=== PATIENT | male | born 1955 | race Caucasian/White ===

== ENCOUNTER 2016-10-01 23:35 | Emergency (ER) | payer BC ==
[~2016-10-01] VITALS: Ht 175.3 cm; Wt 91.4 kg
[~2016-10-01 23:35] MED LIST: CITA20TA9 PO; IBUP600T44 PO; LVQ750 PO; MISCCAP80 PO
[2016-10-01 23:40] VITALS: TEMP 37.2; Ht 175.3 cm; Wt 91.4 kg
[2016-10-02] MEDS ORDERED: ONDANSETRON INJ 2 MG/ML 2 ML VIAL IV STA ×2 (00:07→01:41)
[2016-10-02] MEDS ORDERED: SODIUM CHLORIDE 0.9% 1000ML 1,000 ML IV STA ×2 (00:08)
[2016-10-02 00:36] LABS: BASO % 0.2 %; BASO ABS # 0.01 K/uL (0-0.2); COMPLETE YES; HEMATOCRIT 47.8 % (42-52); LYMPH % 14.7 %; LYMPH ABS # 0.59 K/uL (1.2-3.4); MEAN CELL VOLUME 89.8 fL (80-100); MEAN CORPUSCULAR HGB CONC 34.5 g/dl (32-36); MEAN PLATELET VOLUME 9.4 fL (7.4-10.4); MONO % 11.5 %; NEUT % 73.6 %; PLATELET COUNT 164 K/uL (130-400); RED BLOOD COUNT 5.32 M/uL (4.7-6.1); WHITE BLOOD COUNT 4.01 K/uL (4.8-10.8)
[2016-10-02 00:41] VITALS: O2SAT 95
[2016-10-02 00:53] LABS: INR 1.1 (0.9-1.1); PARTIAL THROMBOPLASTIN RATIO 1.2; PROTHROMBIN TIME (PATIENT) 11.7 SECONDS (9.0-12.0)
[2016-10-02 00:57] LABS: ALT/SGPT 64 U/L (12-78); BLOOD UREA NITROGEN 18 mg/dl (7-18); BUN/CREATININE RATIO 16.5 (10-20); CALCIUM 8.8 mg/dl (8.5-10.1); CARBON DIOXIDE 22 mmol/L (21-32); CHLORIDE 102 mmol/L (98-107); GLUCOSE 118 mg/dl (70-99); POTASSIUM 3.8 mmol/L (3.5-5.1); SODIUM 135 mmol/L (136-145)
[2016-10-02 01:00] LABS: ALB/GLOB RATIO 0.9 (0.9-2); ALKALINE PHOSPHATASE 100 U/L (45-117); AST/SGOT 54 U/L (15-37)
[2016-10-02 01:22] LABS: LYME DISEASE AB IGG NEG (NEG); LYME DISEASE AB IGM NEG (NEG)
[2016-10-02] MEDS ORDERED: PARO1TAB29 PO (01:24)
--- NOTE | 2016-10-02 01:27 | EMERGENCY ROOM VISIT NOTE ---
History Report prepared by Hetal: Nish Lindsey Under the Supervision of: Dr. Candie Quinones D.O. First contact with patient: 23:48 Chief Complaint: ILLNESS Stated Complaint: CHILLS,FEVER,SWEATS,DRY HEAVES, History of Present Illness The patient is a 61 year old male who presents to the Emergency Room with complaints of intermittent vomiting that began 3 days ago. At this time, the patient began to have an abundance of symptoms that include chills, nausea, body aches, diaphoresis, headaches, and the vomiting as well. Eating makes his symptoms worse, and he cannot keep anything, food or water, in his system. Yesterday, he had a fever of 101 F. He has never had this before. He has had pneumonia and diverticulitis in the past, but states that this feels different. He had one bowel movement since Wednesday, and he states that it was diarrhea. He has a past medical history of an appendectomy and multiple hernia surgeries. He denies any specific abdominal pain, but states that his "skin is tender." He denies any history of heart problems or diabetes. He notes that he had a tick bite 8 weeks ago. He states that he removed it quickly. Source of History: patient Onset: 3 days ago Position: other (GI) Symptom Intensity: moderate Quality: other (Vomiting) Timing: intermittent Modifying Factors (Worsening): eating Associated Symptoms: + chills, + headache, + diaphoresis, + nausea, + diarrhea, No abdominal pain Note: He has body aches. Review of Systems See HPI for pertinent positives & negatives. A total of 10 systems reviewed and were otherwise negative. Past Medical & Surgical Medical Problems: (1) Diverticulitis Surgical Problems: (1) S/P appendectomy (2) S/P knee replacement Family History Diabetes mellitus Heart disease Kidney disease Kidney stones Social History Smoking Status: Never Smoker Alcohol Use: none Marital Status: Housing Status: lives with family Occupation Status: employed Current/Historical Medications Scheduled Paroxetine (Paxil), 40 MG PO DAILY Scheduled PRN Ibuprofen (Motrin), 600 MG PO TID PRN for Pain Allergies Coded Allergies: Amoxicillin (Verified Allergy, Unknown, vomiting, 10/01/16) Clavulanic Acid (Verified Allergy, Unknown, vomiting, 10/01/16) Physical Exam Vital Signs Date Time Temp Pulse Resp B/P (MAP) Pulse Ox O2 Delivery O2 Flow Rate FiO2 10/02/16 03:05 89 15 91 10/02/16 03:01 103/65 10/02/16 02:52 103/65 10/02/16 02:50 94 21 92 10/02/16 02:50 92 20 103/65 92 Room Air 10/02/16 02:35 99 13 91 10/02/16 02:20 97 14 92 10/02/16 02:05 106 14 93 10/02/16 02:02 128/74 10/02/16 01:50 92 13 93 10/02/16 01:35 98 22 94 10/02/16 01:30 92 24 110/79 93 Room Air 10/02/16 01:27 110/79 10/02/16 01:20 98 18 93 10/02/16 01:05 92 16 94 10/02/16 00:50 90 19 93 10/02/16 00:41 95 Room Air 10/02/16 00:35 89 13 97 10/02/16 00:20 91 26 95 10/02/16 00:05 95 20 10/01/16 23:53 102 10/01/16 23:40 37.2 106 20 113/67 95 Room Air Physical Exam General: Moaning and appears quite uncomfortable. HEENT: Head - normocephalic and atraumatic Pupils are equal, round, and reactive to light. Extraocular eye muscles are intact, and sclera are anicteric. Nose - moist nasal mucosa without discharge. Mouth - moist buccal mucosa. Oropharynx is nonerythematous and there is no tonsillar exudate or edema noted. Neck: Supple; no JVD, nuchal rigidity, cervical lymphadenopathy. Heart: Regular rate and rhythm. There is a normal S1 and S2 with no murmurs, clicks, or gallops appreciated. Lungs: Clear to auscultation bilaterally with no wheezes, rales, or rhonchi. Abdomen: Soft, completely nontender, nondistended, with good bowel sounds. There are no palpable pulsatile masses or hepatosplenomegaly. There is no guarding, rigidity, or rebound noted. Extremities: No evidence of cyanosis, clubbing, or edema. There are easily palpable peripheral pulses. Skin: warm and slightly diaphoretic with good turgor and no rashes. Medical Decision & Procedures ER Provider Diagnostic Interpretation: Radiology results as stated below per my review and the radiologist's interpretation: CHEST X-RAY: Deep sulcus sign on the left. No cardiomegaly. No pulmonary infiltrates. Per me. Laboratory Results 10/02/16 00:05 Red Blood Count 5.32, Mean Corpuscular Volume 89.8, Mean Corpuscular Hemoglobin 31.0, Mean Corpuscular Hemoglobin Concent 34.5, Mean Platelet Volume 9.4, Neutrophils (%) (Auto) 73.6, Lymphocytes (%) (Auto) 14.7, Monocytes (%) (Auto) 11.5, Eosinophils (%) (Auto) 0.0, Basophils (%) (Auto) 0.2, Neutrophils # (Auto ) 2.95, Lymphocytes # (Auto) 0.59, Monocytes # (Auto) 0.46, Eosinophils # (Auto ) 0.00, Basophils # (Auto) 0.01 10/02/16 00:05 Test 10/02/16 00:05 10/02/16 00:43 White Blood Count 4.01 K/uL (4.8-10.8) Red Blood Count 5.32 M/uL (4.7-6.1) Hemoglobin 16.5 g/dL (14.0-18.0) Hematocrit 47.8 % (42-52) Mean Corpuscular Volume 89.8 fL (80-100) Mean Corpuscular Hemoglobin 31.0 pg (25-34) Mean Corpuscular Hemoglobin Concent 34.5 g/dl (32-36) Platelet Count 164 K/uL (130-400) Mean Platelet Volume 9.4 fL (7.4-10.4) Neutrophils (%) (Auto) 73.6 % Lymphocytes (%) (Auto) 14.7 % Monocytes (%) (Auto) 11.5 % Eosinophils (%) (Auto) 0.0 % Basophils (%) (Auto) 0.2 % Neutrophils # (Auto) 2.95 K/uL (1.4-6.5) Lymphocytes # (Auto) 0.59 K/uL (1.2-3.4) Monocytes # (Auto) 0.46 K/uL (0.11-0.59) Eosinophils # (Auto) 0.00 K/uL (0-0.5) Basophils # (Auto) 0.01 K/uL (0-0.2) RDW Standard Deviation 44.2 fL (36.4-46.3) RDW Coefficient of Variation 13.4 % (11.5-14.5) Immature Granulocyte % (Auto) 0.0 % Immature Granulocyte # (Auto) 0.00 K/uL (0.00-0.02) Prothrombin Time 11.7 SECONDS (9.0-12.0) Prothromb Time International Ratio 1.1 (0.9-1.1) Activated Partial Thromboplast Time 31.7 SECONDS (21.0-31.0) Partial Thromboplastin Ratio 1.2 Anion Gap 11.0 mmol/L (3-11) Est Creatinine Clear Calc Drug Dose 76.8 ml/min Estimated GFR () 82.4 Estimated GFR (Non- 71.1 BUN/Creatinine Ratio 16.5 (10-20) Calcium Level 8.8 mg/dl (8.5-10.1) Total Bilirubin 0.4 mg/dl (0.2-1) Aspartate Amino Transf (AST/SGOT) 54 U/L (15-37) Alanine Aminotransferase (ALT/SGPT) 64 U/L (12-78) Alkaline Phosphatase 100 U/L (45-117) Total Creatine Kinase 236 U/L (39-308) Creatine Kinase MB 1.3 ng/ml (0.5-3.6) Creatine Kinase MB Ratio 0.6 (0-3.0) Troponin I < 0.015 ng/ml (0-0.045) Total Protein 8.0 gm/dl (6.4-8.2) Albumin 3.8 gm/dl (3.4-5.0) Globulin 4.2 gm/dl (2.5-4.0) Albumin/Globulin Ratio 0.9 (0.9-2) Lyme Disease IgG Antibody NEG (NEG) Lyme Disease IgM Antibody NEG (NEG) Bedside Lactic Acid Venous 1.37 mmol/L (0.90-1.70) Laboratory results per my review. Medications Administered Medications (Trade) Dose Ordered Sig/Ruiz Route Start Time Stop Time Status Last Admin Dose Admin Ondansetron HCl (Zofran Inj) 4 mg NOW STAT IV 10/02/16 00:07 10/02/16 00:09 DC 10/02/16 00:18 4 MG Sodium Chloride 1,000 ml @ 999 mls/hr Q1H1M STAT IV 10/02/16 00:08 10/02/16 01:08 DC 10/02/16 00:18 999 MLS/HR Sodium Chloride 1,000 ml @ 250 mls/hr Q4H STAT IV 10/02/16 00:08 10/02/16 03:46 DC 10/02/16 01:32 250 MLS/HR Ondansetron HCl (Zofran Inj) 4 mg NOW STAT IV 10/02/16 01:41 10/02/16 01:43 DC 10/02/16 01:46 4 MG Ketorolac Tromethamine (Toradol Inj) 30 mg NOW STAT IV 10/02/16 01:41 10/02/16 01:43 DC 10/02/16 01:47 30 MG Procedure Zofran Inj 4 mg IV Sodium Chloride 1000 ml @ 250 mls/hr IV Sodium Chloride 1000 ml @ 999 mls/hr IV. Toradol Inj 30 mg IV Zofran Inj 4 mg IV ECG Indication: vomiting Rate (beats per minute): 87 Rhythm: normal sinus Findings: no acute ischemic change, no ectopy ED Course 2348: Past medical records reviewed. The patient was evaluated in room B2. A complete history and physical exam was performed. An IV lock was initiated and labs are drones above. A twelve-lead EKG was obtained as described above. 0007: Ordered Zofran Inj 4 mg IV 0008: Ordered Sodium Chloride 1000 ml @ 250 mls/hr IV, Sodium Chloride 1000 ml @ 999 mls/hr IV. 0135: The patient states that he is having more pain, specifically in his back, hips, and joints. 0141: Ordered Toradol Inj 30 mg IV, Zofran Inj 4 mg IV 0226: The patient had a massive bowel movement and feels much better. He denies any black tarry stools but states that it was olive green in color. 0238: I gave him ole niyah and crackers to see if he could eat successfully. 0258: The patient was able to eat successfully. 0315: Upon reevaluation, the patient is resting. I discussed findings and results with him. He verbalized agreement of the treatment plan. He was discharged home. Medical Decision The patient is a 61 year old male who presents to the ED with vomiting. Differential diagnosis includes gastritis, food-borne illness, pancreatitis, cholecystitis, Lyme disease, and dehydration. I attest that I have personally reviewed the patient's current medication list. Patient was found to have normal blood pressure on screening and does not require follow-up. Laboratory Results: White blood cell count low at 4.0, normal H&H, normal renal function and LFTs, glucose 118, lactic acid 1.3, cardiac enzymes negative, coagulation studies normal. This is a 61-year-old male patient has been vomiting over the past 2-1/ 2 days. He presents to the emergency department tonight because he is concern for dehydration also describes diffuse body aches. The patient had a low white blood cell count which is most likely consistent with a virus. There is no fever noted. There is no signs of sepsis. The patient's pain in his muscles was controlled with IV Toradol. He received 2 doses of IV Zofran which helped with his nausea. He is feeling much better at this time. I did consider the possibility of Lyme disease that the patient's Lyme titer was negative. I've asked the patient a follow-up with his PCP later today if the symptoms persist. Impression Primary Impression: Vomiting Additional Impression: Myalgia Scribe Attestation The scribe's documentation has been prepared under my direction and personally reviewed by me in its entirety. I confirm that the note above accurately reflects all work, treatment, procedures, and medical decision making performed by me. Departure Information Dispostion Home / Self-Care Referrals Pedro Addison M.D. (PCP) Forms HOME CARE DOCUMENTATION FORM, IMPORTANT VISIT INFORMATION, WORK / SCHOOL INSTRUCTIONS Patient Instructions ED Vomiting Diarrhea Nonspecific Ad, My [facility], Vomit Diarrhea Self Care Additional Instructions rest Take a bland diet and plenty of clear liquds Follow up later today with Dr. Addison for a recheck Problem Qualifiers Primary Impression: Vomiting Vomiting type: unspecified Vomiting Intractability: intractable Nausea presence: with nausea Qualified Codes: R11.2 - Nausea with vomiting, unspecified
[2016-10-02] MEDS ORDERED: KETOROLAC TROMETHAMINE 30 MG/ML VIAL IV STA (01:41)
[2016-10-02 02:04] LABS: CKMB/CK RATIO 0.6 (0-3.0)
[2016-10-02 03:01] VITALS: BP 103/65
[2016-10-02 03:05] VITALS: PULSE 89; O2SAT 91
--- NOTE | 2016-10-02 06:56 | DIAGNOSTIC IMAGING REPORT ---
CHEST ONE VIEW PORTABLE HISTORY:61 yearsMaleSepsis COMPARISON: Chest CT 02/18/2015, chest radiographs 01/15/2015 TECHNIQUE: Portable upright AP view of the chest FINDINGS: Cardiac silhouette is upper limits of normal. There is unchanged right hemidiaphragmatic elevation. There is no pneumothorax, pleural effusion or focal airspace consolidation. The bones appear grossly intact. IMPRESSION: No acute cardiopulmonary process. The above report was generated using voice recognition software. It may contain grammatical, syntax or spelling errors. Electronically signed by: Sam Baron M.D. 10/02/2016 6:55 AM Dictated Date/Time: 10/02/2016 6:53 AM
== END 2016-10-02 03:19 | disposition home or self-care (01) ==
LOC: C.EDB 23:36
DX: R11.2 Nausea with vomiting, unspecified (principal); M79.1 Myalgia; K57.92 Diverticulitis of intestine, part unspecified, without perforation or abscess without bleeding; Z83.3 Family history of diabetes mellitus; Z82.49 Family history of ischemic heart disease and other diseases of the circulatory system

== ENCOUNTER → 2017-01-25 | Outpatient (CLI) | payer BC ==
[~2017-01-25] MED LIST changes: -CITA20TA9 PO; -LVQ750 PO; -MISCCAP80 PO; +PARO1TAB29 PO
[2017-01-25 09:46] LABS: BASO % 0.4 %; BASO ABS # 0.03 K/uL (0-0.2); COMPLETE YES; EOS % 3.3 %; HEMATOCRIT 49.4 % (42-52); IG% 0.1 %; LYMPH % 24.9 %; LYMPH ABS # 1.87 K/uL (1.2-3.4); MEAN CELL VOLUME 93.4 fL (80-100); MEAN CORPUSCULAR HEMOGLOBIN 30.8 pg (25-34); MEAN PLATELET VOLUME 9.5 fL (7.4-10.4); MONO % 7.6 %; NEUT % 63.7 %; PLATELET COUNT 278 K/uL (130-400); RED BLOOD COUNT 5.29 M/uL (4.7-6.1)
[2017-01-25 10:20] LABS: AST/SGOT 41 U/L (15-37); BLOOD UREA NITROGEN 16 mg/dl (7-18); BUN/CREATININE RATIO 17.6 (10-20); CALCIUM 8.6 mg/dl (8.5-10.1); CARBON DIOXIDE 27 mmol/L (21-32); CHLORIDE 107 mmol/L (98-107); CHOLESTEROL 124 mg/dl (0-200); CREATININE 0.93 mg/dl (0.60-1.40); GLUCOSE 99 mg/dl (70-99); POTASSIUM 4.4 mmol/L (3.5-5.1); SODIUM 138 mmol/L (136-145); TRIGLYCERIDES 86 mg/dl (0-150); VERY LOW DENSITY LIPOPROT CALC 17 mg/dl
[2017-01-25 10:28] LABS: ALB/GLOB RATIO 0.9 (0.9-2); ALKALINE PHOSPHATASE 161 U/L (45-117); ALT/SGPT 52 U/L (12-78); HDL CHOLESTEROL 31 mg/dl; LDL CHOLESTEROL CALCULATED 76 mg/dl
[2017-01-25 10:31] LABS: ESTIMATED AVERAGE GLUCOSE 111 mg/dl; HA1C FLAG Normal (Normal)
== END | disposition home or self-care (01) ==
LOC: C.LAB 06:41
PROVIDERS: ATTEND Physician Assistant
DX: Z51.81 Encounter for therapeutic drug level monitoring (principal); Z79.899 Other long term (current) drug therapy

== ENCOUNTER → 2017-03-01 | Outpatient (CLI) | payer BC ==
[2017-03-01 10:18] LABS: THYROID STIMULATING HORMONE 5.79 uIu/ml (0.300-4.500)
== END | disposition home or self-care (01) ==
LOC: C.LAB 06:55
PROVIDERS: ATTEND Physician Assistant
DX: Z79.899 Other long term (current) drug therapy (principal)

== ENCOUNTER 2017-11-04 18:37 | Inpatient (IN) | payer BC, OTHER ==
[~2017-11-04] VITALS: Ht 175.3 cm; Wt 90.3 kg
[~2017-11-04 18:37] MED LIST changes: +CPR/500 PO; +MTR500 PO
[2017-11-04] MEDS ORDERED: ONDANSETRON INJ 2 MG/ML 2 ML VIAL IV STA (19:15)
[2017-11-04 19:35] LABS: BASO % 0.1 %; BASO ABS # 0.01 K/uL (0-0.2); EOS % 0.5 %; EOS ABS # 0.07 K/uL (0-0.5); HEMATOCRIT 44.2 % (42-52); HEMOGLOBIN 15.4 g/dL (14.0-18.0); IG# 0.03 K/uL (0.00-0.02); LYMPH % 8.9 %; LYMPH ABS # 1.15 K/uL (1.2-3.4); MEAN CELL VOLUME 91.5 fL (80-100); MEAN CORPUSCULAR HEMOGLOBIN 31.9 pg (25-34); MEAN CORPUSCULAR HGB CONC 34.8 g/dl (32-36); MONO % 6.8 %; MONO ABS # 0.88 K/uL (0.11-0.59); NEUT % 83.5 %; NEUT ABS # 10.71 K/uL (1.4-6.5); PLATELET COUNT 260 K/uL (130-400); RED CELL DISTRIBUTION WIDTH CV 13.5 % (11.5-14.5); RED CELL DISTRIBUTION WIDTH SD 45.3 fL (36.4-46.3); WHITE BLOOD COUNT 12.85 K/uL (4.8-10.8)
[2017-11-04 19:58] LABS: ALBUMIN 3.8 gm/dl (3.4-5.0); CALCIUM 8.5 mg/dl (8.5-10.1); CREATININE 1.36 mg/dl (0.60-1.40); POTASSIUM 4.1 mmol/L (3.5-5.1); TOTAL PROTEIN 7.9 gm/dl (6.4-8.2)
[2017-11-04] MEDS ORDERED: RSP2 PO (22:57)
[2017-11-04] MEDS ORDERED: GLC500 PO (22:57)
[2017-11-04] MEDS ORDERED: CITA40TA4 PO (22:57)
--- NOTE | 2017-11-04 22:59 | DIAGNOSTIC IMAGING REPORT ---
CT SCAN OF THE ABDOMEN AND PELVIS WITH IV CONTRAST CLINICAL HISTORY: Left lower quadrant abdominal pain. COMPARISON STUDY: Abdominal CT dated 01/04/2015. TECHNIQUE: Following the IV administration of 91 cc of Optiray 320, CT scan of the abdomen and pelvis is performed from the lung bases to the proximal femora. Images are reviewed in the axial, sagittal, and coronal planes. IV contrast was administered without complication. A dose lowering technique was utilized adhering to the principles of ALARA. CT DOSE: 645.27 mGy.cm FINDINGS: Lung bases: The heart is normal in size and without pericardial effusion. There are scattered coronary artery calcifications. A tiny hiatal hernia is noted. There is bibasilar scarring/atelectasis. No airspace consolidation or pleural effusion is seen. A small fat-containing Bochdalek hernia is noted on the left. Liver: The contrast-enhanced liver is enlarged, measuring 20.9 cm in length. The liver is otherwise normal in contour and attenuation. There is no intrahepatic biliary ductal dilatation. The hepatic veins and portal veins are patent. Gallbladder: There are layering calcified gallstones without CT evidence of acute cholecystitis. Spleen: Normal in size and attenuation. Pancreas: Unremarkable. Adrenal glands: A 13 mm adenoma is again seen in the left adrenal gland. The right adrenal gland is unremarkable. Kidneys: The contrast enhanced kidneys are normal in size and without hydronephrosis. The kidneys demonstrate heterogeneous enhancement, right greater than left. There is bilateral perinephric stranding, right greater than left. Abdominal vasculature: The abdominal aorta is normal in course and caliber noting moderate atherosclerotic calcification. Bowel: There is moderate colonic diverticulosis. There is focal wall thickening and edema with pericolonic inflammation and fluid seen involving distal descending/proximal sigmoid colon consistent with acute diverticulitis. There is no evidence of abscess. Moderate colonic fecal retention is observed. No bowel obstruction is identified. The appendix is not identified and reported surgically absent. Peritoneum: There is no intraperitoneal free air or abdominal ascites. There is a small fat-containing umbilical hernia. Lymphadenopathy: There are scattered subcentimeter retroperitoneal lymph nodes, likely on a reactive basis. Pelvic viscera: The prostate gland is enlarged and heterogeneous. The bladder is normal as imaged. Skeletal structures: Mild lumbosacral spondylosis is observed. A large bone island is incidentally noted in the right proximal femur. No lytic or blastic lesions are seen. IMPRESSION: 1. There is moderate colonic diverticulosis with evidence of acute diverticulitis involving the distal descending/proximal sigmoid colon. No intraperitoneal free air is identified and there is no evidence of abscess. 2. The kidneys demonstrate heterogeneous perfusion with associated perinephric stranding, right greater than left. The appearance is nonspecific but suggests bilateral pyelonephritis. Correlation with clinical findings and urinalysis will be required. 3. Cholelithiasis. 4. Moderate colonic fecal retention. No bowel obstruction is seen. 5. Hepatomegaly. 6. Additional findings as above. Electronically signed by: Diego Rubio M.D. 11/04/2017 10:57 PM Dictated Date/Time: 11/04/2017 10:49 PM
[2017-11-04] MEDS ORDERED: PIPERACILLIN/TAZOBACTAM 4.5 GM/100ML D5W IV STA (23:10)
--- NOTE | 2017-11-04 23:19 | EMERGENCY ROOM VISIT NOTE ---
History Report prepared by Hetal: Valerio Munguia Under the Supervision of: Dr. Josh Costello M.D. First contact with patient: 19:05 Chief Complaint: ABDOMINAL PAIN Stated Complaint: VERY SICK, DIVERTICULITIS Nursing Triage Summary: Pt reports he had diverticulitis in August and was treated and symptoms resolved. Pt reports symptoms returned a few days ago. Pt reports nausea and left lower abdominal pain. Pt saw his PCP and was told to come her to be evaluated and possible CT scan. History of Present Illness The patient is a 62 year old male who presents to the Emergency Room with complaints of left lower quadrant abdominal pain beginning about 2 weeks ago. The patient describes his symptoms as a "gassy pain." He reports that he currently feels slightly improved. He reports that he has vomited. He denies rectal bleeding or fever, and notes that he is able to urinate without difficulty. He reports that earlier he was diagnosed with diverticulitis in August , was treated with Flagyl and Cipro, and that his symptoms improved, only to return a couple weeks ago. He stated he felt better for about 3 or 4 days but then his pain got worse today. The patient denies a history of high blood pressure or diabetes. Source of History: patient Onset: about 2 weeks ago Position: abdomen (LLQ) Symptom Intensity: moderate Quality: other ("gassy" pain) Timing: other (currently slightly improved) Associated Symptoms: + vomiting, No fevers, No urinary symptoms Note: denies rectal bleeding Review of Systems See HPI for pertinent positives & negatives. A total of 10 systems reviewed and were otherwise negative. Past Medical & Surgical Medical Problems: (1) Diverticulitis Surgical Problems: (1) S/P appendectomy (2) S/P knee replacement Family History Diabetes mellitus Heart disease Kidney disease Kidney stones Social History Smoking Status: Never Smoker Alcohol Use: none Marital Status: Housing Status: lives with family Occupation Status: employed Current/Historical Medications Scheduled Ciprofloxacin (Ciprofloxacin HCl), 500 MG PO BID Citalopram (Citalopram Hydrobromide), 40 MG PO DAILY Metformin HCl (Metformin HCl), 500 MG PO BID Metronidazole (Metronidazole), 500 MG PO TID Risperidone (Risperidone), 2 MG PO DAILY Scheduled PRN Ibuprofen (Motrin), 600 MG PO TID PRN for Pain Allergies Coded Allergies: Amoxicillin (Verified Allergy, Unknown, vomiting, 10/01/16) Clavulanic Acid (Verified Allergy, Unknown, vomiting, 10/01/16) Physical Exam Vital Signs Date Time Temp Pulse Resp B/P (MAP) Pulse Ox O2 Delivery O2 Flow Rate FiO2 11/04/17 22:39 77 18 130/78 95 Room Air 11/04/17 20:17 70 18 107/68 95 Room Air 11/04/17 18:49 36.8 78 18 113/71 94 Room Air Physical Exam Constitutional: Vital signs reviewed. Eyes: Pupils are equal round reactive to light. Conjunctiva are noninjected. ENT: Pharynx is clear without erythema or exudate. Mucous membranes are moist. Neck supple without meningeal signs. Respiratory: Clear to auscultation bilaterally. Breath sounds are equal bilaterally. Cardiovascular: Regular rate and rhythm. No rubs or gallops. GI: Soft, nondistended. Tenderness to the left lower quadrant. No guarding. Bowel sounds are present. Musculoskeletal: No peripheral edema. No lower extremity tenderness. Integumentary: No cyanosis. Neurological: The patient is awake and alert. No focal deficits. Psychiatric: Normal affect. Medical Decision & Procedures ER Provider Diagnostic Interpretation: CT SCAN OF THE ABDOMEN AND PELVIS WITH IV CONTRAST CLINICAL HISTORY: Left lower quadrant abdominal pain. COMPARISON STUDY: Abdominal CT dated 01/04/2015. TECHNIQUE: Following the IV administration of 91 cc of Optiray 320, CT scan of the abdomen and pelvis is performed from the lung bases to the proximal femora. Images are reviewed in the axial, sagittal, and coronal planes. IV contrast was administered without complication. A dose lowering technique was utilized adhering to the principles of ALARA. CT DOSE: 645.27 mGy.cm FINDINGS: Lung bases: The heart is normal in size and without pericardial effusion. There are scattered coronary artery calcifications. A tiny hiatal hernia is noted. There is bibasilar scarring/atelectasis. No airspace consolidation or pleural effusion is seen. A small fat-containing Bochdalek hernia is noted on the left. Liver: The contrast-enhanced liver is enlarged, measuring 20.9 cm in length. The liver is otherwise normal in contour and attenuation. There is no intrahepatic biliary ductal dilatation. The hepatic veins and portal veins are patent. Gallbladder: There are layering calcified gallstones without CT evidence of acute cholecystitis. Spleen: Normal in size and attenuation. Pancreas: Unremarkable. Adrenal glands: A 13 mm adenoma is again seen in the left adrenal gland. The right adrenal gland is unremarkable. Kidneys: The contrast enhanced kidneys are normal in size and without hydronephrosis. The kidneys demonstrate heterogeneous enhancement, right greater than left. There is bilateral perinephric stranding, right greater than left. Abdominal vasculature: The abdominal aorta is normal in course and caliber noting moderate atherosclerotic calcification. Bowel: There is moderate colonic diverticulosis. There is focal wall thickening and edema with pericolonic inflammation and fluid seen involving distal descending/proximal sigmoid colon consistent with acute diverticulitis. There is no evidence of abscess. Moderate colonic fecal retention is observed. No bowel obstruction is identified. The appendix is not identified and reported surgically absent. Peritoneum: There is no intraperitoneal free air or abdominal ascites. There is a small fat-containing umbilical hernia. Lymphadenopathy: There are scattered subcentimeter retroperitoneal lymph nodes, likely on a reactive basis. Pelvic viscera: The prostate gland is enlarged and heterogeneous. The bladder is normal as imaged. Skeletal structures: Mild lumbosacral spondylosis is observed. A large bone island is incidentally noted in the right proximal femur. No lytic or blastic lesions are seen. IMPRESSION: 1. There is moderate colonic diverticulosis with evidence of acute diverticulitis involving the distal descending/proximal sigmoid colon. No intraperitoneal free air is identified and there is no evidence of abscess. 2. The kidneys demonstrate heterogeneous perfusion with associated perinephric stranding, right greater than left. The appearance is nonspecific but suggests bilateral pyelonephritis. Correlation with clinical findings and urinalysis will be required. 3. Cholelithiasis. 4. Moderate colonic fecal retention. No bowel obstruction is seen. 5. Hepatomegaly. 6. Additional findings as above. Electronically signed by: Diego Rubio M.D. 11/04/2017 10:57 PM Dictated Date/Time: 11/04/2017 10:49 PM Laboratory Results 11/04/17 19:25 Red Blood Count 4.83, Mean Corpuscular Volume 91.5, Mean Corpuscular Hemoglobin 31.9, Mean Corpuscular Hemoglobin Concent 34.8, Mean Platelet Volume 9.0, Neutrophils (%) (Auto) 83.5, Lymphocytes (%) (Auto) 8.9, Monocytes (%) (Auto) 6.8, Eosinophils (%) (Auto) 0.5, Basophils (%) (Auto) 0.1, Neutrophils # (Auto) 10.71, Lymphocytes # (Auto) 1.15, Monocytes # (Auto) 0.88, Eosinophils # (Auto) 0.07, Basophils # (Auto) 0.01 11/04/17 19:25 Test 11/04/17 19:25 11/04/17 21:48 White Blood Count 12.85 K/uL (4.8-10.8) Red Blood Count 4.83 M/uL (4.7-6.1) Hemoglobin 15.4 g/dL (14.0-18.0) Hematocrit 44.2 % (42-52) Mean Corpuscular Volume 91.5 fL (80-100) Mean Corpuscular Hemoglobin 31.9 pg (25-34) Mean Corpuscular Hemoglobin Concent 34.8 g/dl (32-36) Platelet Count 260 K/uL (130-400) Mean Platelet Volume 9.0 fL (7.4-10.4) Neutrophils (%) (Auto) 83.5 % Lymphocytes (%) (Auto) 8.9 % Monocytes (%) (Auto) 6.8 % Eosinophils (%) (Auto) 0.5 % Basophils (%) (Auto) 0.1 % Neutrophils # (Auto) 10.71 K/uL (1.4-6.5) Lymphocytes # (Auto) 1.15 K/uL (1.2-3.4) Monocytes # (Auto) 0.88 K/uL (0.11-0.59) Eosinophils # (Auto) 0.07 K/uL (0-0.5) Basophils # (Auto) 0.01 K/uL (0-0.2) RDW Standard Deviation 45.3 fL (36.4-46.3) RDW Coefficient of Variation 13.5 % (11.5-14.5) Immature Granulocyte % (Auto) 0.2 % Immature Granulocyte # (Auto) 0.03 K/uL (0.00-0.02) Anion Gap 7.0 mmol/L (3-11) Est Creatinine Clear Calc Drug Dose 61.0 ml/min Estimated GFR () 63.3 Estimated GFR (Non- 54.6 BUN/Creatinine Ratio 13.9 (10-20) Calcium Level 8.5 mg/dl (8.5-10.1) Total Bilirubin 0.4 mg/dl (0.2-1) Direct Bilirubin 0.1 mg/dl (0-0.2) Aspartate Amino Transf (AST/SGOT) 27 U/L (15-37) Alanine Aminotransferase (ALT/SGPT) 42 U/L (12-78) Alkaline Phosphatase 102 U/L (45-117) Total Protein 7.9 gm/dl (6.4-8.2) Albumin 3.8 gm/dl (3.4-5.0) Lipase 142 U/L (73-393) Urine Color YELLOW Urine Appearance CLEAR (CLEAR) Urine pH 5.0 (4.5-7.5) Urine Specific [place] 1.012 (1.000-1.030) Urine Protein TRACE (NEG) Urine Glucose (UA) NEG (NEG) Urine Ketones NEG (NEG) Urine Occult Blood NEG (NEG) Urine Nitrite NEG (NEG) Urine Bilirubin NEG (NEG) Urine Urobilinogen NEG (NEG) Urine Leukocyte Esterase NEG (NEG) Urine WBC (Auto) 1-5 /hpf (0-5) Urine RBC (Auto) 0-4 /hpf (0-4) Urine Hyaline Casts (Auto) 1-5 /lpf (0-5) Urine Epithelial Cells (Auto) 0-5 /lpf (0-5) Urine Bacteria (Auto) NEG (NEG) Laboratory results as reviewed by me. Medications Administered Medications (Trade) Dose Ordered Sig/Ruiz Route Start Time Stop Time Status Last Admin Dose Admin Ondansetron HCl (Zofran Inj) 4 mg NOW STAT IV 11/04/17 19:15 11/04/17 19:17 DC 11/04/17 19:31 4 MG ED Course 1906: The patient was evaluated in room B6. A complete history and physical exam was performed. 1914: Ordered Zofran 4 mg IV Medical Decision This is a 62-year-old male who presents with left lower quadrant abdominal pain. Differential diagnosis includes acute diverticulitis, perforation, abscess, strain, kidney stone, UTI. I did perform a limited focused review of portions of the patient's old chart on the electronic medical record. The patient has had no recent pertinent visits to this hospital. I did evaluate the patient as noted above. IV access was established. I did treat patient with IV Zofran. I did order and personally review the patient's urine analysis as described above. There is no evidence of infection. I did order and review the patient's blood work as noted in the electronic medical record. His white blood cell count is elevated. I did order a CT of the abdomen and pelvis. I did review the images myself as well as the radiology report as described above. He does have diverticulitis despite being on 9 days of antibiotics. The patient was informed of his test results. This is his second bout of diverticulitis within months and he has already been on a 9 day course of antibiotics without resolution of his diverticulitis. I therefore recommended hospitalization for IV antibiotics and further care. He states he is not allergic to Augmentin. He states he just vomited after taking it on an empty stomach. He has no known allergy to penicillin. I did treat him with Zosyn IV. He did have some perinephric stranding but there is no evidence of UTI on urinalysis. I did discuss the case with the hospitalist and sample case porter. Medication Reconcilliation Current Medication List: was personally reviewed by me Blood Pressure Screening Patient's blood pressure: Normal blood pressure Blood pressure disposition: Did not require urgent referral Consults Consulting Physician: Dr. Avery Returned Call: 23:13 Impression Primary Impression: Diverticulitis Additional Impression: Failure of outpatient treatment Scribe Attestation The scribe's documentation has been prepared under my direct and personally reviewed by me in its entirety. I confirm that the note above accurately reflects all work, treatment, procedures, and medical decision making performed by me. Departure Information Dispostion Being Evaluated By Hospitalist Referrals Pedro Addison M.D. (PCP) Patient Instructions [facility] Problem Qualifiers
[2017-11-04] MEDS ORDERED: CARBOHYDRATES FOR HYPOGLYCEMIA PO PRN (23:30)
[2017-11-04] MEDS ORDERED: GLUCOSE 40% GEL 15 GM TUBE PO PRN (23:30)
[2017-11-04] MEDS ORDERED: GLUCAGON FOR INJ 1 MG VIAL SQ PRN (23:30)
[2017-11-04] MEDS ORDERED: ONDANSETRON INJ 2 MG/ML 2 ML VIAL IV PRN (23:30)
[2017-11-04] MEDS ORDERED: DEXTROSE 50% 50 ML SYR IV PRN (23:30)
[2017-11-04] MEDS ORDERED: GLUCOSE 10 TABS/TUBE PO PRN (23:30)
[2017-11-04] MEDS ORDERED: PIPERACILL/TAZOBAC CONSULT ACTIVE PRN (23:30)
[2017-11-05] MEDS ORDERED: ACETAMINOPHEN IV 100 ML IV PRN (00:15)
--- NOTE | 2017-11-05 00:38 | History and Physical ---
History & Physical Date & Time of Service: Nov 05, 2017 at 00:16 Chief Complaint: Very Sick, Diverticulitis Primary Care Physician: Pedro Addison M.D. History of Present Illness Patient is a 62 year old male with a history of diverticulitis and diabetes that presents with worsening abdominal pain. The patient most recently started an outpatient regimen due to a recent episode of Diverticulitis that started on October 22. Today was the last day of his antibiotic regimen and as of yesterday was pain free. He states he woke up this morning with severe, sharp, LLQ pain similar to the pain experienced during previous diverticulitis infections. He states he has had chills, felt nauseous, and had multiple episodes of vomiting throughout the day. He denies any fevers, sweats, chest pain, diarrhea, shortness of breath, or any other acute complaints. His only abdominal surgery was an appendectomy as a child. He has had multiple episodes of diverticulitis in the past including an admission several years ago with similar complaints. Past Medical/Surgical History Medical Problems: (1) Community acquired pneumonia (2) Failure of outpatient treatment (3) Lower back pain (4) Myalgia (5) Pneumonia (6) Sepsis (7) SIRS (systemic inflammatory response syndrome) (8) Vomiting Surgical Problems: (1) S/P appendectomy (2) S/P knee replacement Family History Diabetes mellitus Heart disease Kidney disease Kidney stones Social History Smoking Status: Never Smoker Marital Status: Housing status: lives with family Occupational Status: employed Immunizations History of Influenza Vaccine: N/A History of Tetanus Vaccine?: No History of Pneumococcal: No History of Hepatitis B Vaccine: No Allergies Coded Allergies: Amoxicillin (Verified Allergy, Unknown, vomiting, 10/01/16) Clavulanic Acid (Verified Allergy, Unknown, vomiting, 10/01/16) Home Medications Scheduled Ciprofloxacin (Ciprofloxacin HCl), 500 MG PO BID Citalopram (Citalopram Hydrobromide), 40 MG PO DAILY Metformin HCl (Metformin HCl), 500 MG PO BID Metronidazole (Metronidazole), 500 MG PO TID Risperidone (Risperidone), 2 MG PO DAILY Scheduled PRN Ibuprofen (Motrin), 600 MG PO TID PRN for Pain Review of Systems Constitutional: + chills, + fatigue, No fever, No sweats, No weight loss Respiratory: No cough, No sputum, No wheezing, No shortness of breath Cardiovascular: No chest pain, No edema, No palpitations Abdomen: + pain, + nausea, + vomiting, No diarrhea, No constipation, No GI bleeding Musculoskeletal: No joint pain, No swelling, No calf pain Neurologic: No memory loss, No paralysis, No weakness, No numbness/tingling Endocrine: No fatigue, No excessive thirst, No excessive urination Physical Exam Vital Signs Date Time Temp Pulse Resp B/P (MAP) Pulse Ox O2 Delivery O2 Flow Rate FiO2 11/04/17 22:39 77 18 130/78 95 Room Air 11/04/17 20:17 70 18 107/68 95 Room Air 11/04/17 18:49 36.8 78 18 113/71 94 Room Air General Appearance: WD/WN, no apparent distress Head: normocephalic, atraumatic Eyes: normal inspection, sclerae normal Neck: supple, no carotid bruits Respiratory/Chest: chest non-tender, lungs clear, normal breath sounds, no respiratory distress, no accessory muscle use Cardiovascular: regular rate, rhythm, no edema, no gallop, no murmur Abdomen/GI: normal bowel sounds, + tenderness (LLQ), + distended Back: normal inspection, no CVA tenderness Neurologic/Psych: alert, normal mood/affect, oriented x 3 Diagnostics Laboratory Results Results Past 24 Hours Test 11/04/17 19:25 11/04/17 21:48 Range/Units White Blood Count 12.85 4.8-10.8 K/uL Red Blood Count 4.83 4.7-6.1 M/uL Hemoglobin 15.4 14.0-18.0 g/dL Hematocrit 44.2 42-52 % Mean Corpuscular Volume 91.5 80-100 fL Mean Corpuscular Hemoglobin 31.9 25-34 pg Mean Corpuscular Hemoglobin Concent 34.8 32-36 g/dl Platelet Count 260 130-400 K/uL Mean Platelet Volume 9.0 7.4-10.4 fL Neutrophils (%) (Auto) 83.5 % Lymphocytes (%) (Auto) 8.9 % Monocytes (%) (Auto) 6.8 % Eosinophils (%) (Auto) 0.5 % Basophils (%) (Auto) 0.1 % Neutrophils # (Auto) 10.71 1.4-6.5 K/uL Lymphocytes # (Auto) 1.15 1.2-3.4 K/uL Monocytes # (Auto) 0.88 0.11-0.59 K/uL Eosinophils # (Auto) 0.07 0-0.5 K/uL Basophils # (Auto) 0.01 0-0.2 K/uL RDW Standard Deviation 45.3 36.4-46.3 fL RDW Coefficient of Variation 13.5 11.5-14.5 % Immature Granulocyte % (Auto) 0.2 % Immature Granulocyte # (Auto) 0.03 0.00-0.02 K/uL Sodium Level 136 136-145 mmol/L Potassium Level 4.1 3.5-5.1 mmol/L Chloride Level 104 98-107 mmol/L Carbon Dioxide Level 25 21-32 mmol/L Anion Gap 7.0 3-11 mmol/L Blood Urea Nitrogen 19 7-18 mg/dl Creatinine 1.36 0.60-1.40 mg/dl Est Creatinine Clear Calc Drug Dose 61.0 ml/min Estimated GFR () 63.3 Estimated GFR (Non- 54.6 BUN/Creatinine Ratio 13.9 10-20 Random Glucose 112 70-99 mg/dl Calcium Level 8.5 8.5-10.1 mg/dl Total Bilirubin 0.4 0.2-1 mg/dl Direct Bilirubin 0.1 0-0.2 mg/dl Aspartate Amino Transf (AST/SGOT) 27 15-37 U/L Alanine Aminotransferase (ALT/SGPT) 42 12-78 U/L Alkaline Phosphatase 102 45-117 U/L Total Protein 7.9 6.4-8.2 gm/dl Albumin 3.8 3.4-5.0 gm/dl Lipase 142 73-393 U/L Urine Color YELLOW Urine Appearance CLEAR CLEAR Urine pH 5.0 4.5-7.5 Urine Specific [place] 1.012 1.000-1.030 Urine Protein TRACE NEG Urine Glucose (UA) NEG NEG Urine Ketones NEG NEG Urine Occult Blood NEG NEG Urine Nitrite NEG NEG Urine Bilirubin NEG NEG Urine Urobilinogen NEG NEG Urine Leukocyte Esterase NEG NEG Urine WBC (Auto) 1-5 0-5 /hpf Urine RBC (Auto) 0-4 0-4 /hpf Urine Hyaline Casts (Auto) 1-5 0-5 /lpf Urine Epithelial Cells (Auto) 0-5 0-5 /lpf Urine Bacteria (Auto) NEG NEG Impression Assessment and Plan Patient is a 62 year old male with a history of diverticulitis and diabetes that presents with worsening abdominal pain Acute Diverticulitis failing outpatient management - CT Abdomen/ Pelvis: 1. There is moderate colonic diverticulosis with evidence of acute diverticulitis involving the distal descending/proximal sigmoid colon. No intraperitoneal free air is identified and there is no evidence of abscess. 2. The kidneys demonstrate heterogeneous perfusion with associated perinephric stranding, right greater than left. The appearance is nonspecific but suggests bilateral pyelonephritis. Correlation with clinical findings and urinalysis will be required. 3. Cholelithiasis. - IV Zosyn 3.375g q6h - IV Zofran 4mg q4h PRN Nausea - IV NS @ 125 mls/hr - NPO Except Meds - Blood Cultures - Admit to Med/Surg CT Imaging concerning for Pyelonephritis - UA appears normal - Urine culture ordered - Patient denies any urinary complaints at this time Diabetes mellitus - Hold home metformin - ISS with BSG AC/HS Mental Health - Continue Risperidone and Celexa DVT - SCDs Code Status - Full Resuscitation Resuscitation Status Full Code VTE Prophylaxis Will order VTE Prophylaxis: Yes Resident Tracking Resident Involvement: Resident Care Provided Care Provided: Adult Hospital Medicine
[2017-11-05 01:00] VITALS: BP 116/77; PULSE 94; TEMP 36.4; O2SAT 95; Ht 175.3 cm; Wt 90.3 kg
[2017-11-05] MEDS ORDERED: NURSING VERBAL MED ORDER ONE (01:30)
[2017-11-05] MEDS: SODIUM CHLORIDE 0.9% 1000ML 1,000 ML IV SCH ×3 (02:02→16:36)
[2017-11-05] MEDS ORDERED: ZOLPIDEM TARTRATE 5 MG TAB PO PRN (03:30)
[2017-11-05] MEDS: PIPERACILL/TAZOBAC IV 3.375 GM in DEXTROSE 5% 100ML 100 ML IV SCH ×3 (04:34→20:16)
[2017-11-05] MEDS ORDERED: INSULIN ASPART 100 UNITS/ML 3 ML PEN SC SCH (06:00)
[2017-11-05 06:28] LABS: BASO % 0.1 %; BASO ABS # 0.01 K/uL (0-0.2); EOS % 0.7 %; EOS ABS # 0.08 K/uL (0-0.5); HEMATOCRIT 42.4 % (42-52); HEMOGLOBIN 14.2 g/dL (14.0-18.0); IG# 0.03 K/uL (0.00-0.02); LYMPH % 14.7 %; LYMPH ABS # 1.62 K/uL (1.2-3.4); MEAN CELL VOLUME 92.4 fL (80-100); MEAN CORPUSCULAR HEMOGLOBIN 30.9 pg (25-34); MEAN CORPUSCULAR HGB CONC 33.5 g/dl (32-36); MEAN PLATELET VOLUME 9.2 fL (7.4-10.4); MONO % 9.7 %; MONO ABS # 1.07 K/uL (0.11-0.59); NEUT % 74.5 %; NEUT ABS # 8.24 K/uL (1.4-6.5); PLATELET COUNT 269 K/uL (130-400); RED CELL DISTRIBUTION WIDTH CV 13.8 % (11.5-14.5); RED CELL DISTRIBUTION WIDTH SD 46.5 fL (36.4-46.3); WHITE BLOOD COUNT 11.05 K/uL (4.8-10.8)
[2017-11-05 07:04] VITALS: BP 102/68; PULSE 76; TEMP 36.7; O2SAT 92
[2017-11-05 07:04] LABS: CALCIUM 8.4 mg/dl (8.5-10.1); CREATININE 1.24 mg/dl (0.60-1.40)
[2017-11-05] MEDS: CITALOPRAM 40 MG TAB PO SCH (08:05)
[2017-11-05] MEDS: RISPERIDONE 2 MG TAB PO SCH (08:05)
[2017-11-05 08:45] VITALS: O2SAT 92
--- NOTE | 2017-11-05 12:23 | Family Medicine Progress Note ---
Progress Note Date of Service Nov 05, 2017. Subjective Pt evaluation today including: conversation w/ patient, physical exam, chart review, lab review, review of inpatient medication list Pain: 2/10 abdominal pain reported PO Intake: NPO Voiding: no voiding problems Mr. Tobar reports he feels much better today. He states he has 2/10 abdominal pain, localized to his LLQ, but otherwise has no complaints. He denies n/v/ diarrhea and states his last bowel movement as yesterday and was normal. Constitutional: No fever, No chills Cardiovascular: No chest pain Abdomen: + pain, No nausea, No vomiting, No diarrhea, No constipation All Other Systems: Reviewed and Negative Medications Current Inpatient Medications Medications (Trade) Dose Ordered Sig/Ruiz Route Start Time Stop Time Status Last Admin Dose Admin Ondansetron HCl (Zofran Inj) 4 mg Q6H PRN IV 11/04/17 23:30 12/04/17 23:29 11/05/17 01:59 4 MG Citalopram Hydrobromide (celeXA TAB) 40 mg DAILY PO 11/05/17 09:00 12/05/17 08:59 11/05/17 08:05 40 MG Risperidone (Risperdal Tab) 2 mg DAILY PO 11/05/17 09:00 12/05/17 08:59 11/05/17 08:05 2 MG Piperacillin Sod/ Tazobactam Sod 3.375 gm/Dextrose 115 ml @ 28.75 mls/ hr Q8H IV 11/05/17 04:00 11/15/17 03:59 11/05/17 04:34 28.75 MLS/HR Miscellaneous Information (Consult) 1 ea UD PRN N/A 11/04/17 23:30 12/04/17 23:29 Acetaminophen 100 ml @ 400 mls/hr Q8H PRN IV 11/05/17 00:15 12/05/17 00:14 Sodium Chloride 1,000 ml @ 125 mls/hr Q8H IV 11/05/17 00:15 12/05/17 00:14 11/05/17 08:11 125 MLS/HR Zolpidem Tartrate (Ambien Tab) 5 mg HS PRN PO 11/05/17 03:30 12/05/17 03:29 Objective Vital Signs Date Time Temp Pulse Resp B/P (MAP) Pulse Ox O2 Delivery O2 Flow Rate FiO2 11/05/17 08:45 92 Room Air 11/05/17 07:04 36.7 76 18 102/68 (79) 92 Room Air 11/05/17 01:00 36.4 94 18 116/77 95 Room Air 11/05/17 00:32 72 18 108/75 95 Room Air 11/04/17 22:39 77 18 130/78 95 Room Air 11/04/17 20:17 70 18 107/68 95 Room Air 11/04/17 18:49 36.8 78 18 113/71 94 Room Air Physical Exam General Appearance: WD/WN, no apparent distress Respiratory/Chest: lungs clear, normal breath sounds, no respiratory distress, no accessory muscle use Cardiovascular: regular rate, rhythm, no edema, no murmur Abdomen: + distended (mildly), + tenderness (LLQ) Extremities: no pedal edema, no calf tenderness Laboratory Results Last 24 Hours Test 11/04/17 19:25 11/04/17 21:48 11/05/17 05:58 White Blood Count 12.85 K/uL 11.05 K/uL Red Blood Count 4.83 M/uL 4.59 M/uL Hemoglobin 15.4 g/dL 14.2 g/dL Hematocrit 44.2 % 42.4 % Mean Corpuscular Volume 91.5 fL 92.4 fL Mean Corpuscular Hemoglobin 31.9 pg 30.9 pg Mean Corpuscular Hemoglobin Concent 34.8 g/dl 33.5 g/dl Platelet Count 260 K/uL 269 K/uL Mean Platelet Volume 9.0 fL 9.2 fL Neutrophils (%) (Auto) 83.5 % 74.5 % Lymphocytes (%) (Auto) 8.9 % 14.7 % Monocytes (%) (Auto) 6.8 % 9.7 % Eosinophils (%) (Auto) 0.5 % 0.7 % Basophils (%) (Auto) 0.1 % 0.1 % Neutrophils # (Auto) 10.71 K/uL 8.24 K/uL Lymphocytes # (Auto) 1.15 K/uL 1.62 K/uL Monocytes # (Auto) 0.88 K/uL 1.07 K/uL Eosinophils # (Auto) 0.07 K/uL 0.08 K/uL Basophils # (Auto) 0.01 K/uL 0.01 K/uL RDW Standard Deviation 45.3 fL 46.5 fL RDW Coefficient of Variation 13.5 % 13.8 % Immature Granulocyte % (Auto) 0.2 % 0.3 % Immature Granulocyte # (Auto) 0.03 K/uL 0.03 K/uL Sodium Level 136 mmol/L 137 mmol/L Potassium Level 4.1 mmol/L 4.0 mmol/L Chloride Level 104 mmol/L 103 mmol/L Carbon Dioxide Level 25 mmol/L 27 mmol/L Anion Gap 7.0 mmol/L 7.0 mmol/L Blood Urea Nitrogen 19 mg/dl 16 mg/dl Creatinine 1.36 mg/dl 1.24 mg/dl Est Creatinine Clear Calc Drug Dose 61.0 ml/min 66.9 ml/min Estimated GFR () 63.3 70.8 Estimated GFR (Non- 54.6 61.1 BUN/Creatinine Ratio 13.9 13.3 Random Glucose 112 mg/dl 106 mg/dl Calcium Level 8.5 mg/dl 8.4 mg/dl Total Bilirubin 0.4 mg/dl Direct Bilirubin 0.1 mg/dl Aspartate Amino Transf (AST/SGOT) 27 U/L Alanine Aminotransferase (ALT/SGPT) 42 U/L Alkaline Phosphatase 102 U/L Total Protein 7.9 gm/dl Albumin 3.8 gm/dl Lipase 142 U/L Urine Color YELLOW Urine Appearance CLEAR Urine pH 5.0 Urine Specific [place] 1.012 Urine Protein TRACE Urine Glucose (UA) NEG Urine Ketones NEG Urine Occult Blood NEG Urine Nitrite NEG Urine Bilirubin NEG Urine Urobilinogen NEG Urine Leukocyte Esterase NEG Urine WBC (Auto) 1-5 /hpf Urine RBC (Auto) 0-4 /hpf Urine Hyaline Casts (Auto) 1-5 /lpf Urine Epithelial Cells (Auto) 0-5 /lpf Urine Bacteria (Auto) NEG Hepatitis C Antibody Screen NEG Assessment and Plan Mr. Tobar is a 62 year old male with a history of diverticulitis and diabetes who presents with worsening abdominal pain Acute Diverticulitis failing outpatient management - CT Abdomen/ Pelvis w/moderate colonic diverticulosis with evidence of acute diverticulitis. No intraperitoneal free air, no evidence of abscess. - continue IV Zosyn until blood culture & urine culture results are back - pain improving, WCC downtrending, afebrile - provided the cultures are negative, can transition to PO augmentin to finish the course of treatment (he has augmentin listed as an allergy, but he actually notes he vomited after taking it on an empty stomach and is therefore not a true allergy) - IV Zofran 4mg q4h PRN Nausea - continue IV NS @ 125 mls/hr - advance diet to clear liquids - pt asked for outpatient referral to GI doctor (Dr. Mario) - reasonable to order this given recurrent hx of diverticulitis refractory to outpatient therapy CT Imaging concerning for Pyelonephritis - CT -> kidneys w/associated perinephric stranding, right greater than left. The appearance is nonspecific but suggests bilateral pyelonephritis. Correlation with clinical findings and urinalysis will be required. - normal kidneys on 2014 CT scan - UA appears normal, asymptomatic w/regards to urinary symptoms - Urine culture ordered & pending Diabetes mellitus - Hold home metformin - BSG AC/HS, ISS as we start to advance diet Mental Health - Continue Risperidone and Celexa DVT - SCDs Code Status - Full Resuscitation Disposition: - anticipate d/c tomorrow Resident Tracking Resident Involvement: Resident Care Provided Care Provided: [facility] Medicine Assessment/Plan Resident Physician Supervision Note: I was present with Dr. Garvin during the history and exam. I discussed the case with the resident and agree with the findings and plan as documented in the note. Any exceptions or clarifications are listed here: Pt seen and examined at bedside. Playing cribbage with friend. Improved LLQ pain and now close to baseline comfort. Reports no nausea on ondansetron therapy. No BM today. On Examination, S1/S2 nl RRR, CTAB. Abd is soft, minimally TTP on the LLQ. Acute diverticulitis - improving on abx, though nausea persistent enough to require addition of ondansetron. Encourage POI advance diet as tolerated. DMII - ISS w/ FSBS Abn CT - no clinical sign of pyelonephritis and urinating well.
[2017-11-05 14:55] VITALS: BP 113/73; PULSE 63; TEMP 36.7; O2SAT 92
[2017-11-05 22:25] VITALS: BP 108/67; PULSE 78; TEMP 36.5; O2SAT 91
[2017-11-06] MEDS: SODIUM CHLORIDE 0.9% 1000ML 1,000 ML IV SCH ×2 (00:15→08:32)
[2017-11-06] MEDS: PIPERACILL/TAZOBAC IV 3.375 GM in DEXTROSE 5% 100ML 100 ML IV SCH (04:02)
[2017-11-06 07:07] LABS: BASO % 0.2 %; BASO ABS # 0.02 K/uL (0-0.2); EOS % 1.6 %; EOS ABS # 0.15 K/uL (0-0.5); HEMATOCRIT 41.5 % (42-52); HEMOGLOBIN 13.8 g/dL (14.0-18.0); IG# 0.01 K/uL (0.00-0.02); LYMPH % 15.5 %; LYMPH ABS # 1.48 K/uL (1.2-3.4); MEAN CELL VOLUME 93.5 fL (80-100); MEAN CORPUSCULAR HEMOGLOBIN 31.1 pg (25-34); MEAN CORPUSCULAR HGB CONC 33.3 g/dl (32-36); MEAN PLATELET VOLUME 9.1 fL (7.4-10.4); MONO % 8.8 %; MONO ABS # 0.84 K/uL (0.11-0.59); NEUT % 73.8 %; NEUT ABS # 7.02 K/uL (1.4-6.5); PLATELET COUNT 294 K/uL (130-400); RED CELL DISTRIBUTION WIDTH CV 13.7 % (11.5-14.5); RED CELL DISTRIBUTION WIDTH SD 47.2 fL (36.4-46.3); WHITE BLOOD COUNT 9.52 K/uL (4.8-10.8)
[2017-11-06 07:08] VITALS: BP 109/69; PULSE 65; TEMP 36.9; O2SAT 93
[2017-11-06 07:44] LABS: CALCIUM 8.3 mg/dl (8.5-10.1); CREATININE 0.92 mg/dl (0.60-1.40); POTASSIUM 3.9 mmol/L (3.5-5.1)
[2017-11-06 08:10] VITALS: O2SAT 93
[2017-11-06] MEDS: RISPERIDONE 2 MG TAB PO SCH (08:32)
[2017-11-06] MEDS: CITALOPRAM 40 MG TAB PO SCH (08:32)
[2017-11-06] MEDS ORDERED: NURSING VERBAL MED ORDER ONE (11:00)
[2017-11-06] MEDS ORDERED: AMOXICILLIN/CLAVULANATE TAB 875 MG TAB PO ONE (12:00)
[2017-11-06] MEDS ORDERED: AMOX875T PO (12:33)
--- NOTE | 2017-11-06 12:45 | Discharge Instructions ---
Discharge Instructions Date of Service Nov 06, 2017. Admission Reason for Admission: Diverticulitis, Failure Of Outpatient Treatment Discharge Discharge Diagnosis / Problem: Diverticulitis Discharge Goals Goal(s): Decrease discomfort, Diagnostic testing, Therapeutic intervention Activity Recommendations Activity Limitations: resume your previous activity . Instructions / Follow-Up Instructions / Follow-Up Mr. Tobar you were admitted for worsening abdominal pain despite being treated by your doctor for diverticulitis. You were found to have diverticulitis on imaging of your abdomen. You were started on IV antibiotics which helped improve your pain. Your pain and nausea were well controlled prior to discharging you and you tolerated a regular diet. We are sending you home on oral antibiotic called Augmentin for another dose tonight and 12 more days twice a day. You also have follow up with Dr. Mario ([employer]) for your diverticulitis on December 27 at 10:20am at the [facility] office. We recommend you take a probiotic while on antibiotics to help recover your good gut bacteria and improve/prevent worsening of your diarrhea. Please follow the instructions below: -Take Augmentin (antibiotic) one pill tonight and twice a day for another 12 days -Take a probiotic while on antibiotic -Continue your other home medications as indicated on your discharge instructions -Follow up with your primary care doctor on Wednesday for re-evaluation -Follow up with GI, Dr. Mario on 12/27/17 at 10:20am at the [facility] office Current Hospital Diet Patient's current hospital diet: Low Fiber Diet, Diabetes Type 2 Diet Discharge Diet Recommended Diet: Diabetes Type 2 Diet Pending Studies Studies pending at discharge: no Medical Emergencies . Who to Call and When: Medical Emergencies: If at any time you feel your situation is an emergency, please call 911 immediately. . Non-Emergent Contact Non-Emergency issues call your: Primary Care Provider Call Non-Emergent contact if: your pain is not controlled, your pain is worsening . . "Provider Documentation" section prepared by Demetra Plaza. .
--- NOTE | 2017-11-06 15:26 | Discharge Summary ---
Discharge Summary Date of Service Nov 06, 2017. Discharge Summary Admission Date: Nov 05, 2017 at 00:02 Discharge Date: Nov 06, 2017 Discharge Disposition: Home Principal Diagnosis: Diverticulitis Problems/Secondary Diagnoses: bilateral pyelonephritis concern based on CT DM2 Immunizations: Have You Had Influenza Vaccine: N/A History of Tetanus Vaccine?: No History of Pneumococcal: No History of Hepatitis B Vaccine: No Procedures: CT SCAN OF THE ABDOMEN AND PELVIS WITH IV CONTRAST CLINICAL HISTORY: Left lower quadrant abdominal pain. COMPARISON STUDY: Abdominal CT dated 01/04/2015. TECHNIQUE: Following the IV administration of 91 cc of Optiray 320, CT scan of the abdomen and pelvis is performed from the lung bases to the proximal femora. Images are reviewed in the axial, sagittal, and coronal planes. IV contrast was administered without complication. A dose lowering technique was utilized adhering to the principles of ALARA. CT DOSE: 645.27 mGy.cm FINDINGS: Lung bases: The heart is normal in size and without pericardial effusion. There are scattered coronary artery calcifications. A tiny hiatal hernia is noted. There is bibasilar scarring/atelectasis. No airspace consolidation or pleural effusion is seen. A small fat-containing Bochdalek hernia is noted on the left. Liver: The contrast-enhanced liver is enlarged, measuring 20.9 cm in length. The liver is otherwise normal in contour and attenuation. There is no intrahepatic biliary ductal dilatation. The hepatic veins and portal veins are patent. Gallbladder: There are layering calcified gallstones without CT evidence of acute cholecystitis. Spleen: Normal in size and attenuation. Pancreas: Unremarkable. Adrenal glands: A 13 mm adenoma is again seen in the left adrenal gland. The right adrenal gland is unremarkable. Kidneys: The contrast enhanced kidneys are normal in size and without hydronephrosis. The kidneys demonstrate heterogeneous enhancement, right greater than left. There is bilateral perinephric stranding, right greater than left. Abdominal vasculature: The abdominal aorta is normal in course and caliber noting moderate atherosclerotic calcification. Bowel: There is moderate colonic diverticulosis. There is focal wall thickening and edema with pericolonic inflammation and fluid seen involving distal descending/proximal sigmoid colon consistent with acute diverticulitis. There is no evidence of abscess. Moderate colonic fecal retention is observed. No bowel obstruction is identified. The appendix is not identified and reported surgically absent. Peritoneum: There is no intraperitoneal free air or abdominal ascites. There is a small fat-containing umbilical hernia. Lymphadenopathy: There are scattered subcentimeter retroperitoneal lymph nodes, likely on a reactive basis. Pelvic viscera: The prostate gland is enlarged and heterogeneous. The bladder is normal as imaged. Skeletal structures: Mild lumbosacral spondylosis is observed. A large bone island is incidentally noted in the right proximal femur. No lytic or blastic lesions are seen. IMPRESSION: 1. There is moderate colonic diverticulosis with evidence of acute diverticulitis involving the distal descending/proximal sigmoid colon. No intraperitoneal free air is identified and there is no evidence of abscess. 2. The kidneys demonstrate heterogeneous perfusion with associated perinephric stranding, right greater than left. The appearance is nonspecific but suggests bilateral pyelonephritis. Correlation with clinical findings and urinalysis will be required. 3. Cholelithiasis. 4. Moderate colonic fecal retention. No bowel obstruction is seen. 5. Hepatomegaly. 6. Additional findings as above. Electronically signed by: Diego Rubio M.D. 11/04/2017 10:57 PM Consultations: none Medication Reconciliation New Medications: Amoxicillin & Pot Clavulanate (Augmentin 875-125 mg) 1 Tab Tab 1 TAB PO BID, #25 TAB Continued Medications: Citalopram (Citalopram Hydrobromide) 40 Mg Tab 40 MG PO DAILY Ibuprofen (Motrin) 600 Mg Tab 600 MG PO TID PRN for Pain, TAB PRN Metformin HCl (Metformin HCl) 500 Mg Tab 500 MG PO BID Risperidone (Risperidone) 2 Mg Tab 2 MG PO DAILY Discontinued Medications: Ciprofloxacin (Ciprofloxacin HCl) 500 Mg Tab 500 MG PO BID for 14 Days Metronidazole (Metronidazole) 500 Mg Tab 500 MG PO TID for 14 Days Discharge Exam Review of Systems: Constitutional: No fever, No chills Respiratory: No shortness of breath Cardiovascular: No chest pain Abdomen: + pain (improved), + diarrhea, No nausea, No vomiting Genitourinary - Male: No hematuria, No dysuria, No urinary frequency, No urinary urgency Neurologic: No problem reported Physical Exam: General Appearance: no apparent distress Eyes: normal inspection ENT: hearing grossly normal Respiratory/Chest: lungs clear, normal breath sounds, no respiratory distress Cardiovascular: regular rate, rhythm, no murmur Abdomen / GI: normal bowel sounds, soft, + tenderness (mild LLQ ) Extremities: no calf tenderness, no pedal edema Neurologic/Psychiatric: alert, oriented x 3 Skin: normal color Hospital Course Mr. Tobar is a 62 year old male with a history of diverticulitis and diabetes who presented with worsening abdominal pain having failed outpatient therapy Acute Diverticulitis failing outpatient management - CT Abdomen/ Pelvis w/moderate colonic diverticulosis with evidence of acute diverticulitis. No intraperitoneal free air, no evidence of abscess. - Received V Zosyn --> Dced on Augmentin 12.5 days to complete 14 day course - pain improved, WCC normalized, BCx negative - IV Zofran and IVF - GI follow up (Dr. Mario) on 12/27 at 10:20am CT Imaging concerning for Pyelonephritis - CT -> kidneys w/associated perinephric stranding, right greater than left. The appearance is nonspecific but suggests bilateral pyelonephritis. Correlation with clinical findings and urinalysis will be required. - normal kidneys on 2014 CT scan - UA appears normal, asymptomatic w/regards to urinary symptoms - Urine culture negative - PCP PLEASE FOLLOW UP OUTPATIENT Diabetes mellitus - Hold home metformin (resumed on DC) - BSG AC/HS, ISS Mental Health - Continued home Risperidone and Celexa DVT SCDs Full CODE Total Time Spent: Greater than 30 minutes This includes examination of the patient, discharge planning, medication reconciliation, and communication with other providers. Discharge Instructions Please refer to the electronic Patient Visit Report (Discharge Instructions) for additional information. Additional Copies To Pedro Addison M.D. Assessment/Plan Resident Physician Supervision Note: I was present with Dr. Plaza during the history and exam. I discussed the case with the resident and agree with the findings and plan as documented in the note. Any exceptions or clarifications are listed here: Pt seen and examined at bedside. LLQ abdominal pain continues to improve. Reports no fever/chills, nausea/vomiting. On Examination, S1/S2 nl RRR, CTAB. Abd is soft, still somewhat TTP on the LLQ. Acute diverticulitis - tolerating POI well, tolerating augmentin ([place] - nausea/ vomiting on empty stomach) and ondansetron DMII - resume home regimen Abn CT - some stranding concerning for b/l pyelo without any clinical indication of same.
[2017-11-06 17:32] VITALS: BP 109/69; PULSE 65; TEMP 36.9; O2SAT 93
== END 2017-11-06 18:55 | disposition home or self-care (01) | DRG 392 ==
LOC: C.EDB 18:40 → C.MS2W 11-05 00:02 → ENRESERV 11-05 00:38
PROVIDERS: ADMIT Student in an Organized Health Care Education/Training Program; ATTEND Family Medicine
DX: K57.32 Diverticulitis of large intestine without perforation or abscess without bleeding (principal); N12 Tubulo-interstitial nephritis, not specified as acute or chronic; E11.9 Type 2 diabetes mellitus without complications; Z79.84 Long term (current) use of oral hypoglycemic drugs; Z79.899 Other long term (current) drug therapy; Z88.0 Allergy status to penicillin

== ENCOUNTER 2020-05-28 10:24 | Observation (INO) ==
--- NOTE | 2020-05-01 10:01 | PAT Medication Instructions ---
Medication Instructions Date of Service May 01, 2020 Home Medications Medication Instructions Recorded ropinirole 2 mg tablet,extended 2 mg PO DAILY #30 tab 01/10/20 release 24 hr ropinirole 4 mg tablet,extended 4 mg PO BID #60 tab 01/10/20 release 24 hr carbidopa ER 25 mg-levodopa 100 mg 1 tab PO BID #60 tab 03/25/20 tablet,extended release fluoxetine 40 mg capsule 40 mg PO DAILY ropinirole 2 mg tablet,extended release 24 hr 2 mg PO DAILY ropinirole 4 mg tablet,extended release 24 hr 4 mg PO BID carbidopa ER 25 mg-levodopa 100 mg tablet,extended release 1 tab PO BID Medical Marijuana 1 dose PO UD PRN aripiprazole 10 mg PO HS Take morning of surgery With a small sip of water, OTHERWISE NOTHING TO EAT OR DRINK AFTER MIDNIGHT: fluoxetine 40 mg capsule 40 mg PO DAILY ropinirole 2 mg tablet,extended release 24 hr 2 mg PO DAILY ropinirole 4 mg tablet,extended release 24 hr 4 mg PO BID carbidopa ER 25 mg-levodopa 100 mg tablet,extended release 1 tab PO BID Take evening before surgery ropinirole 4 mg tablet,extended release 24 hr 4 mg PO BID carbidopa ER 25 mg-levodopa 100 mg tablet,extended release 1 tab PO BID Medical Marijuana 1 dose PO UD PRN (if needed) aripiprazole 10 mg PO HS Other Notes If you have any questions please call us at [phone] or [phone] or [phone] or [phone]
--- NOTE | 2020-05-02 08:20 | Anesthesiology Consultation ---
Date of Service May 02, 2020 Assessment & Plan (1) Encounter for pre-operative examination: Per assessment on 05/02: Travel screen negative. No known COVID-19 positive conta cts or current COVID-19 related symptoms. Surgeon arranging preop COVID testing. Awaiting results. Chart Review Chart Review: Acceptable Risk for Surgery and Patient seen in Pre Admission Testing Teaching & Discussion Pre-Anesthesia Teaching/Discussion Notes: Instructed NPO after midnight before surgery,except medications with 15 cc of water. Medication instructions provided according to the PAT guidelines. History Surgery Operation Date: 05/28/20 10:40 Proposed Procedures p Left Total Knee Revision Poly Exchange Patella Resurfacing - Demetrius Avery MD Height/Weight Height: 5 ft 9 in Weight: 92.8 kg Allergies Allergy/AdvReac Type Severity Reaction Status Date / Time No Known Allergies Allergy Verified 04/26/20 13:33 Medications Home Medications Medication Instructions Recorded Confirmed Last Taken fluoxetine 40 mg capsule 40 mg PO DAILY 09/18/19 04/26/20 Unknown ropinirole 2 mg tablet,extended 2 mg PO DAILY #30 tab 01/10/20 04/26/20 Unknown release 24 hr ropinirole 4 mg tablet,extended 4 mg PO BID #60 tab 01/10/20 04/26/20 Unknown release 24 hr carbidopa ER 25 mg-levodopa 100 mg 1 tab PO BID #60 tab 03/25/20 04/26/20 Unknown tablet,extended release Medical Marijuana 1 dose PO UD PRN 04/26/20 04/26/20 Unknown aripiprazole 10 mg PO HS 04/26/20 04/26/20 Unknown Past Medical History Medical History Anxiety disorder History of diverticulitis Intermittent explosive disorder Osteoarthritis Painful total knee replacement Parkinsonism Tremor B/L hands Exercise / Class Metabolic Activity II 4-5 Yardwork/Stairs/Walk up hill Past Family History Family History Grandmother (Paternal) Family history of diabetes mellitus Mother Family history of diabetes mellitus Other No family history of adverse response to anesthesia Past Surgical History Surgical History H/O shoulder surgery Right History of appendectomy History of cataract surgery R/L History of colonoscopy History of esophagogastroduodenoscopy (EGD) History of hernia repair R/L inguinal History of knee replacement Left History of tonsillectomy [place] teeth removed Past Anesthesia History No Hx of Anesthesia Complications and No Family Hx of Anesthesia Complications History of PONV No Hx of PONV and No Hx of Motion Sickness Social History Smoking Status: Former smoker tobacco type: cigarettes Do You Dip or Chew Tobacco: No Smoking End Date: Quit 1999 (hx tobacco use x 30 use) Hx Alcohol Use: No substance use type: does not use Review of Systems + snoring. No apnea events. Patient denies chest pain, shortness of breath, dyspnea on exertion, fever, chills, cough, wheezing, palpitations. Physical Exam Vital Signs VITALS BP 122/73 P 80 TEMP 97.9 SP02 94%RA RESP 16 PHYSICAL Full neck and c-spine range of motion. Full TMJ range of motion. TMD 3 finger breaths Mallampati Score 2 Dentition: intact Lungs: clear throughout to auscultation Cardiac: regular rate and rhythm, no murmurs noted Spine: normal Carotid arteries: negative bruit Extremities: resting tremor hands Trimmed pike Testing Laboratory Results 05/02/20 08:41 05/02/20 08:41 PT 10.2 Seconds (9.0-12.0) 05/02/20 08:41 INR 1.0 (0.9-1.1) 05/02/20 08:41 APTT 27.3 Seconds (21.0-31.0) 05/02/20 08:41 Blood Type O Positive 05/02/20 08:41 Antibody Screen NEGATIVE 05/02/20 08:41 03/25/20 TSH 5.120 (labs ordered by neurologist > recommend deferring to PCP for further management. Does not appear PCP ever received message or labs therefore I informed PCP office and forwarded them the labs for continuity of care/management at their discretion) Electrocardiogram Date: 05/02/20 NSR at 68bpm. Low voltage QRS. No significant change compared to 10/02/16 per guide delegate review. Chest X-Ray Date: 09/07/19 FINDINGS: PA and lateral chest radiographs are compared to study dated 10/02/2016 and correlated with chest CT dated 02/18/2015. The heart is top normal for projection. There is atherosclerotic calcification of the thoracic aorta. Emphysema and chronic interstitial thickening are similar to previous. There is no pneumothorax. The skeletal structures are osteopenic. The bony thorax appears intact. IMPRESSION: Emphysematous change with no active disease in the chest.
[2020-05-02 10:21] LABS: Basophils # (auto) 0.02 K/uL (0-0.2); Basophils % (auto) 0.3 %; Eosinophils % (auto) 3.2 %; Hematocrit (blood only) 46.6 % (42-52); Hemoglobin 15.4 g/dL (14.0-18.0); Immature Granulocytes # (auto) 0.02 K/uL (0.00-0.02); Immature Granulocytes % (auto) 0.3 %; Lymphocytes # (auto) 1.61 K/uL (1.2-3.4); Lymphocytes % (auto) 26.1 %; Mean Corpuscular Hemoglobin 31.6 pg (25-34); Mean Corpuscular Volume 95.7 fL (80-100); Mean Platelet Volume 9.4 fL (7.4-10.4); Monocytes # (auto) 0.55 K/uL (0.11-0.59); Monocytes % (auto) 8.9 %; Neutrophils # (auto) 3.77 K/uL (1.4-6.5); Neutrophils % (auto) 61.2 %; Platelet Count 278 K/uL (130-400); RDW Coefficient of Variation 13.5 % (11.5-14.5); Red Blood Count 4.87 M/uL (4.7-6.1); White Blood Count 6.17 K/uL (4.8-10.8)
[2020-05-02 10:30] LABS: BUN Creatinine Ratio 21.9 (10-20); C Reactive Protein 0.39 mg/dl (0-0.29); Calcium 8.7 mg/dl (8.5-10.1); Creatinine Clr Calc Pharmacy 90.6 ml/min; Est GFR (African American) 102.5; Est GFR (Non-African American) 88.5; Potassium 4.3 mmol/L (3.5-5.1)
[2020-05-02 10:32] LABS: Partial Thromboplastin Time 27.3 Seconds (21.0-31.0); Prothrombin Time 10.2 Seconds (9.0-12.0)
--- NOTE | 2020-05-02 11:08 | Electrocardiogram Report ---
Test Reason : Blood Pressure : / mmHG Vent. Rate : 068 BPM Atrial Rate : 068 BPM P-R Int : 168 ms QRS Dur : 098 ms QT Int : 432 ms P-R-T Axes : 071 048 050 degrees QTc Int : 459 ms Normal sinus rhythm Low voltage QRS Borderline ECG When compared with ECG of 02-OCT-2016 00:35, No significant change was found Confirmed by Brooks Worthington ([id number]) on 05/02/2020 11:07:54 AM Referred By: Demetrius Avery Confirmed By:Brooks Worthington
--- NOTE | 2020-05-21 23:40 | History and Physical Report ---
DATE OF ADMISSION: 05/28/2020 CHIEF COMPLAINT: Persistent left knee pain and discomfort after knee replacement done in 2009. HISTORY OF PRESENT ILLNESS: A 65-year-old gentleman who presents for surgical treatment of his left knee. He has a long history of knee problems and had his left knee replaced by Dr. Meza back on 06/11/2009. He says it has never been good since then. No problems with drainage or infection, but has had swelling and anterior knee pain. He alluded that Dr. Meza wished that he had replaced his kneecap. He has had an infectious workup, which was negative. We have talked about treatment options including further conservative versus operative intervention. He is really hoping to do something to make this at least some better. He has got global knee pain more in the front of his knee than anything, it is worse going up and down steps, and describes a grinding and popping sensation with bending of his knee. He describes anterior pain and lateral pain. He also says it is stiff. PAST MEDICAL HISTORY: 1. Anxiety/depression. 2. Parkinson's disease x1 year. PAST SURGICAL HISTORY: Include, 1. Left knee replacement on 06/11/2009. 2. Right shoulder surgery. 3. Herniorrhaphy. 4. Appendectomy. ALLERGIES: None. CURRENT MEDICATIONS: Include, 1. Ropinirole. 2. Abilify. 3. Prozac. 4. Omeprazole. 5. Tylenol. SOCIAL HISTORY: A 65-year-old male. He is retired. Lives in [place]. Rare alcohol intake. Does not smoke. FAMILY HISTORY: Noncontributory. REVIEW OF SYSTEMS: Negative for diabetes. He does have this underlying Parkinson's disease for the past year. Seems pretty well controlled. No history of DVT or PE. No known bleeding problems. PHYSICAL EXAMINATION: GENERAL: Shows a pleasant, middle-aged male. Looks to be in pretty good health. HEENT: Benign. NECK: Supple, no lymphadenopathy. LUNGS: Clear to auscultation. HEART: Has a regular rate and rhythm. ABDOMEN: Soft, nontender, nondistended. EXTREMITIES: Grossly neurovascularly intact except as follows: Examination of left lower extremity reveals the patient walks without any real limp. He does have a slight bit of a tremor. He has got a well-healed incision. I do not detect much in the way of an effusion. He has got a slight flexion contracture of 5-10 degrees. He can only flex to about 90 degrees. There is no instability. He does have crepitance with knee motion. IMAGING DATA: X-rays of the left knee were reviewed. It shows a cemented posterior stabilized total knee arthroplasty. It looks to be a DePuy rotating implant. He does not have patellar resurfacing. No obvious signs of lucency or loosening. The implant is a little prominent laterally. A bone scan was also reviewed from 12/18/2019. It shows fairly normal uptake around his knee. No obvious signs of loosening. Equivocal patellofemoral uptake. ASSESSMENT: A 65-year-old gentleman 11 years out from a left knee replacement with persistent pain within the undersurface of the patella. His infectious workup has been negative. I do not think his knee is loose, but he may be getting some of this pain from his undersurface of patella and that is certainly possible. His knee is stiff also. He has failed all conservative measures. PLAN: We talked about treatment options. There is certainly no guarantee any revision surgery is going to make him better. After extensive discussion, he would like to proceed with patellar resurfacing. We will also likely do a polyethylene exchange. We will try and do a release in order to get him better knee extension. The fact he has got a flexion contracture and an unresurfaced patella may be creating quite a bit of his anterior knee pain. I did tell him there is about a 50/50 chance this will make him significantly better. The risks and benefits of this procedure were explained. He is fully aware of all the risks including DVT, PE, , infection, neurological injury, vascular injury, bleeding problem, pain, limited range of motion, stiffness, persistent pain, etc. The patient understands and desires to proceed. Informed consent was obtained. We will likely plan on doing a patellar resurfacing and polyethylene revision. If we do get in there and it is loose, we will have to do a full revision and we will be prepared for that.
[~2020-05-28 10:24] MED LIST changes: +ACETAMINOPHEN 500 MG TAB PO SCH; +BUPIVACAINE 0.25% 30 ML VIAL ONE; +BUPIVACAINE 0.5 % 5 MG/1 ML PF 10ML VIAL ONE; +BUPIVACAINE LIPOSOME/PF 266 MG, BUPIVACAINE/EPINEPHRINE 50 ML, SODIUM CHLORIDE 0.9% 30 ... INFIL SCH; -CPR/500 PO; +FAMOTIDINE 20 MG TAB PO SCH; +GABAPENTIN 300 MG CAP PO SCH; -IBUP600T44 PO; +LR 500ML BOLUS, THEN 15ML/HR IV SCH; +LR 60ML/HR IV SCH; +METOCLOPRAMIDE HCL 10 MG TABLET PO SCH; -MTR500 PO; -PARO1TAB29 PO; +Scopolamine 1 MG TDSY TD SCH; +TRANEXAMIC ACID 1,000 MG **IV Pre-op IV SCH; +ceFAZolin 2000MG 2,000 MG/15 ML SYR IV SCH
--- NOTE | 2020-05-28 10:55 | History & Physical Bridge Note ---
Date of Service May 28, 2020 History & Physical Bridge Note I have examined the patient, reviewed the History & Physical and in the interval since the performance of the History & Physical I have noted the following changes of clinical significance: no changes noted
[2020-05-28] MEDS ORDERED: LIDOCAINE HCL 2% 2 ML VIAL/AMP(20MG/ML) INFIL ONE (11:54)
[2020-05-28] MEDS ORDERED: PROPOFOL IV EMULSION 10 MG/ML 20 ML VIAL IV ONE ×3 (11:54→14:49)
[2020-05-28] MEDS ORDERED: fentaNYL citrate 100 MCG/2 ML VIAL ONE (11:55)
[2020-05-28] MEDS ORDERED: MIDAZOLAM HCL 1 MG/ML 2ML VIAL ONE ×2 (11:55→13:30)
[2020-05-28] MEDS ORDERED: ATROPINE SULFATE 0.1 MG/ML 10ML SYR IV PRN (12:17)
[2020-05-28] MEDS ORDERED: ONDANSETRON INJ 2 MG/ML 2 ML VIAL IV PRN (12:17)
[2020-05-28] MEDS ORDERED: ePHEDrine sulfate 50 MG/ML AMP IV PRN (12:17)
[2020-05-28] MEDS ORDERED: fentaNYL citrate 100 MCG/2 ML VIAL IV PRN (12:17)
[2020-05-28] MEDS ORDERED: SODIUM CHLORIDE 0.9% PF 50 ML VIAL ONE (13:04)
[2020-05-28] MEDS ORDERED: BUPIVACAINE LIPOSOME 1.3% 266 MG/20 ML VIAL ONE (13:05)
[2020-05-28] MEDS ORDERED: BACITRACIN INJ 50,000 UNIT VIAL ONE (13:05)
[2020-05-28] MEDS ORDERED: BUPIVACAINE 0.25% 30 ML VIAL ONE (13:05)
[2020-05-28] MEDS ORDERED: EPINEPHrine INJ 1 MG/ML AMP ONE (13:05)
[2020-05-28] MEDS ORDERED: ONDANSETRON INJ 2 MG/ML 2 ML VIAL ONE (13:32)
--- NOTE | 2020-05-28 15:27 | Post Operative Brief Note ---
PG Immediate Post Op with CF Date of Surgery May 28, 2020 Pre & Post Diagnosis Operation Date: 05/28/20 12:30 Pre-Op Diagnosis: Painful Total Knee Replacement-left Post-Op Diagnosis: Painful Total Knee Replacement-left I identified the patient and participated in the time-out.: Yes Procedure Operation Date: 05/28/20 12:30 Actual Procedures p Left Total Knee Revision Poly Exchange Patella Resurfacing, Synevectomy(Left) - Demetrius Avery MD Surgeon Demetrius Avery MD Electrophysiology Technologist ALLY Gayle Estimated Blood Loss 50 Findings Consistent with Post-Op Diagnosis Fluids 700 cc Specimens Specimen Description: Culture 1: Left Knee Frozen 1: Left Knee Synovium -- poly count per high power field Drains Morris Catheter Anesthesia Type Spinal MAC Complications none Disposition Accompanied Patient To Recovery: No Disposition: Recovery Room
--- NOTE | 2020-05-28 15:40 | XRay Report ---
LEFT KNEE 2 VIEWS History: Left total knee arthroplasty. Degenerative arthritis. Postop. FINDINGS: The patient is status post a left total knee arthroplasty. The hardware is intact. No fract ure or dislocation. Skin javier are in place. IMPRESSION: Left total knee arthroplasty. No evidence for hardware complication. ACT 112: Negative or not required by law. Electronically signed by: Yuan Fragoso M.D. 05/28/2020 3:38 PM
--- NOTE | 2020-05-28 16:07 | Anesthesiology Progress Note ---
Date of Service May 28, 2020 Anesthesia Post Procedure Vital Signs Vital Signs: Temp Pulse Pulse Resp BP Pulse Ox 05/28/20 16:00 54 L 12 109/58 L 96 05/28/20 15:50 36.4 C L 63 12 107/61 98 05/28/20 15:40 71 14 108/58 L 100 05/28/20 15:32 36.2 C L 83 19 103/60 94 05/28/20 10:49 36.7 C 73 20 137/73 97 Transfer of Care Handoff Completed per policy Notes Mental Status: alert / awake / arousable and participated in evaluation Patient Amnestic to Procedure: Yes Nausea / Vomiting: adequately controlled Pain: adequately controlled Airway Patency, RR, SpO2: stable & adequate BP & HR: stable & adequate Hydration State: stable & adequate Neuraxial Anesthesia: was administered and sensory block is resolving Anesthetic Complications: no major complications apparent and Pt Satisfied with anesthetic care
[2020-05-28] MEDS ORDERED: oxyCODONE HCL IR 5 MG TAB (IMMEDIATE RELEASE) PO PRN (16:42)
[2020-05-28] MEDS ORDERED: MAGNESIUM HYDROXIDE SUSP 30 ML UDC PO PRN (16:42)
[2020-05-28] MEDS ORDERED: METOCLOPRAMIDE HCL INJ 5 MG/ML 2 ML VIAL IV PRN (16:42)
[2020-05-28] MEDS ORDERED: TAMSULOSIN HCL 0.4 MG CAP PO PRN (16:42)
[2020-05-28] MEDS ORDERED: NON-FORMULARY MEDICATION (Medical Marijuana 1 EA) PO PRN (16:42)
[2020-05-28] MEDS ORDERED: bisacodyL 10 MG SUPP PR PRN (16:42)
[2020-05-28] MEDS ORDERED: HYDROmorphone INJ 1 MG/ML SYRINGE IV PRN (16:42)
[2020-05-28] MEDS ORDERED: NALOXONE HCL 0.4 MG/1 ML VIAL/CARP IV PRN (16:42)
[2020-05-28] MEDS ORDERED: ALUMINUM/MAGNESIUM SUSP 30 ML UDC PO PRN (16:42)
[2020-05-28] MEDS: SODIUM CHLORIDE 0.9% 1000ML 1,000 ML IV SCH (17:03)
[2020-05-28] MEDS ORDERED: MEDICAL MARIJUANA TOP PRN (17:16)
[2020-05-28] MEDS: ASCORBIC ACID 500 MG TAB PO SCH (18:19)
[2020-05-28] MEDS: Scopolamine CHECK PATCH PLACEMENT SCH ×2 (18:20→22:41)
[2020-05-28] MEDS: KETOROLAC TROMETHAMINE 15 MG/ML VIAL IV SCH (18:20)
--- NOTE | 2020-05-28 18:25 | Operative Report ---
Post Operative Report Pre & Post Diagnosis Operation Date: 05/28/20 12:30 Pre-Op Diagnosis: Painful left total Knee Replacement with significant flexion contracture and undersurface patella. Post-Op Diagnosis: Painful left total Knee Replacement with significant flexion contracture and on resurfaced patella. I identified the patient and participated in the time-out.: Yes Procedure Operation Date: 05/28/20 12:30 Actual Procedures p Left Total Knee Revision Poly Exchange Patella Resurfacing, Synevectomy(Left) - Demetrius Avery MD Surgeon Demetrius Avery MD Framework Developer ALLY Gayle Estimated Blood Loss 50 Findings Consistent with Post-Op Diagnosis Operative findings revealed a nonresurfaced and warm patella. The femoral and tibial components were very well fixed without any signs of loosening or osteolysis. There was fairly minimal polyethylene wear. He did have a flexion contracture of about 15degrees and a stiff knee with only flexion to about 100 degrees. There is no varus or valgus instability. There is no clinical signs of infection. Fluids 700 cc. Specimens Left knee synovium sent for frozen section which revealed less than 1 poly per high-power field. Left knee fluid sent for stat Gram stain and aerobic and anaerobic culture. Drains None. Anesthesia Type Spinal MAC Complications none Disposition Accompanied Patient To Recovery: No Disposition: Recovery Room Indications Patient is a 65-year-old gentleman who is now about 11 years out from a left cemented posterior stabilized rotating platform total knee replacement. He never had did well from the surgery is had persistent pain discomfort a lot which seem to be related to his patellofemoral joint. His knee was a bit stiff with about a 10 to 15 degree flexion contracture and limited flexion about 100 degrees. He had an infectious work-up which was negative. His exam and history was consistent with some degree of patellofemoral pain. He elected proceed with a revision. He was fully aware that converting/resurfacing his patella may improve his symptoms but very possibly may not. We also elected to try and fix his flexion contracture as that the likely got contributed to his patellofemoral pain. Description of Procedure Operative implants consist of: 1. DePuy PFC Sigma 10 mm rotating platform polyethylene bearing. 2. 32 mm x 8 mm all polypatella. The patient was taken the operating identified and placed on the operating table supine position. All contact areas were properly padded. IV antibiotics were 5 by the anesthesia team. A spinal anesthetic and abductor canal block had been applied in the holding area. A Morris catheter was placed in sterile fashion. A left thigh turn was then placed in the left lower extremities and prepped and draped in usual sterile fashion. The left leg was elevated exsanguinated with use of an Esmarch and tourniquet placed at 300 mmHg. An anterior approach left knee was then performed through longitudinal incision using the previous incision and extending it both proximally and distally several centimeters. Sharp dissection was carried through subcutaneous tissue down the extensor mechanism. A medial parapatellar arthrotomy incision was made. Upon entering the joint there was a very small amount of benign-appearing fluid. We did send this off for stat Gram stain and aerobic and anaerobic culture. Subperiosteal dissection was carried out medially. I did an extensive synovectomy of the suprapatellar pouch and medial lateral gutters. There was not a lot of polyethylene wear. This was sent for frozen section which revealed less than 1 polys per high-power field. I did mobilized and excised the scar tissue and fibrous tissue formed around the patella as well as right patella tendon taking great care to protect the patella tendon insertion into the tibial tubercle. The patella was then subluxated laterally and the knee was flexed. The polyethylene bearing was removed. I did an extensive release of the posterior aspect of the tibia with hopes of gaining more extension of his knee. Once this was complete we placed a trial bearing. Were able to get the knee out to full extension without significant difficulty. I then proceeded with the patella. The patella was cleaned of all soft tissue. Patella thickness measured 25 mm in thickness was cut down to 15. Was sized to a size 32 patella. I then prepared the patella with the patella clamp and the lug holes were drilled. The lateral osteophyte was removed. The patella button was placed and the knee was taken through range of motion patella tracked nicely with a no thumbs test. We elect to place these implants. All trial implants were removed. I did place the permanent mobile-bearing 10 mm polyethylene insert. I then mixed a single batch of Palacos G cement and cemented the patella. Once the cement hardened the knee was taken through range of motion and the patella tracked nicely with no thumbs test. I can get his knee out to full extension without difficulty. Flexion was to about 120 degrees with gravity. I injected locally with 100 cc of combination of 20 cc of Exparel, the 30 cc normal saline, 50 cc of quarter percent Marcaine with epinephrine. Patient did receive 1 g tranexamic acid. The tourniquet was then let down for tourniquet time 72 minutes. Hemostasis assured use electrocautery. The wounds once again irrigated. The extensor mechanism closed with a combination 1 PDS suture #1 Vicryl suture in a [id number] fashion. Extensor mechanism checked found to be intact the subcutaneous tissue then closed with 2 Dexon suture in buried interrupted fashion skin was closed skin javier. Leg was then cleaned and dried a sterile dressing composed Xeroform, 4 x 4's, sterile cast padding, Uche bandage were applied. Patient then transferred to the recovery room in stable condition. Patient tolerated the procedure well and there were no complications. Jagdish Gayle, my physician assistant front end manager, was present for the entire procedure. His assistance was essential and required for appropriate patient positioning, prepping and draping, surgical exposure, performing the technical details of the operation, placement the implants, closure of the wound, and placement of the sterile bandage. I attest to the content of the Intraoperative Record and any orders documented therein. Any exceptions are noted below.
[2020-05-28] MEDS: ASPIRIN 81 MG ECTAB PO SCH (20:30)
[2020-05-28] MEDS: DOCUSATE SODIUM 100 MG CAP PO SCH (20:30)
[2020-05-28] MEDS: TAPENTADOL HCL ER 50 MG TABCR PO SCH (20:36)
[2020-05-28] MEDS ORDERED: ROPINIROLE 4 MG PO SCH (21:00)
[2020-05-28] MEDS ORDERED: ARIPiprazole 10 MG TAB PO SCH (21:00)
[2020-05-28] MEDS ORDERED: SENNA 8.6 MG TAB PO SCH (21:00)
[2020-05-28] MEDS: ONDANSETRON INJ 2 MG/ML 2 ML VIAL IV PRN (21:07)
[2020-05-28] MEDS ORDERED: TRANEXAMIC ACID / 0.7% NACL 1,000 MG/100 ML BAG IV SCH (21:31)
[2020-05-28] MEDS: ceFAZolin 2000MG 2,000 MG/15 ML SYR IV SCH (21:45)
[2020-05-28] MEDS: ACETAMINOPHEN 500 MG TAB PO SCH (21:45)
[2020-05-29] MEDS: KETOROLAC TROMETHAMINE 15 MG/ML VIAL IV SCH ×3 (00:26→13:02)
[2020-05-29] MEDS: ONDANSETRON INJ 2 MG/ML 2 ML VIAL IV PRN (05:30)
[2020-05-29] MEDS: ACETAMINOPHEN 500 MG TAB PO SCH ×2 (05:35→13:02)
[2020-05-29] MEDS: ceFAZolin 2000MG 2,000 MG/15 ML SYR IV SCH (06:25)
[2020-05-29] MEDS ORDERED: dexAMETHasone 4 MG TAB PO SCH (08:00)
--- NOTE | 2020-05-29 08:00 | Anesthesiology Progress Note ---
Date of Service May 29, 2020 Anesthesia Post Procedure Vital Signs Vital Signs: Temp Pulse Pulse Pulse Resp BP BP 05/29/20 03:15 36.6 C 64 14 102/62 05/28/20 22:15 36.7 C 68 14 106/64 05/28/20 20:30 101/60 05/28/20 19:42 36.8 C 53 L 14 91/58 L 05/28/20 18:15 36.5 C 67 18 106/59 L 05/28/20 17:35 36.7 C 78 16 109/69 05/28/20 16:45 36.5 C 70 18 108/70 05/28/20 16:15 36.4 C L 63 18 103/66 05/28/20 16:00 54 L 12 109/58 L 05/28/20 15:50 36.4 C L 63 12 107/61 05/28/20 15:40 71 14 108/58 L 05/28/20 15:32 36.2 C L 83 19 103/60 05/28/20 10:49 36.7 C 73 20 137/73 Pulse Ox 05/29/20 03:15 94 05/28/20 22:15 94 05/28/20 20:30 05/28/20 19:42 94 05/28/20 18:15 94 05/28/20 17:35 90 05/28/20 16:45 95 05/28/20 16:15 94 05/28/20 16:00 96 05/28/20 15:50 98 05/28/20 15:40 100 05/28/20 15:32 94 05/28/20 10:49 97 Notes Mental Status: alert / awake / arousable and participated in evaluation Patient Amnestic to Procedure: Yes Nausea / Vomiting: adequately controlled Pain: adequately controlled Airway Patency, RR, SpO2: stable & adequate BP & HR: stable & adequate Hydration State: stable & adequate Neuraxial Anesthesia: was administered and sensory block resolved Anesthetic Complications: no major complications apparent
[2020-05-29] MEDS: Scopolamine CHECK PATCH PLACEMENT SCH (08:29)
[2020-05-29] MEDS: TAPENTADOL HCL ER 50 MG TABCR PO SCH (08:30)
[2020-05-29] MEDS: ASPIRIN 81 MG ECTAB PO SCH (08:31)
[2020-05-29] MEDS: DOCUSATE SODIUM 100 MG CAP PO SCH (08:32)
[2020-05-29] MEDS: ASCORBIC ACID 500 MG TAB PO SCH (08:32)
[2020-05-29 08:39] LABS: Hematocrit (blood only) 41.8 % (42-52); Hemoglobin 13.9 g/dL (14.0-18.0); Mean Corpuscular Hemoglobin 31.8 pg (25-34); Mean Corpuscular Hgb Conc 33.3 g/dL (32-36); Mean Corpuscular Volume 95.7 fL (80-100); Mean Platelet Volume 9.1 fL (7.4-10.4); Platelet Count 227 K/uL (130-400); RDW Coefficient of Variation 13.5 % (11.5-14.5); RDW Standard Deviation 47.1 fL (36.4-46.3); Red Blood Count 4.37 M/uL (4.7-6.1)
[2020-05-29] MEDS: SODIUM CHLORIDE 0.9% 1000ML 1,000 ML IV SCH (08:51)
[2020-05-29] MEDS ORDERED: FLUoxetine HCL 20 MG CAP PO SCH (09:00)
[2020-05-29] MEDS ORDERED: CARBIDOPA/LEVODOPA 25/100MG EXT REL TAB PO SCH (09:00)
[2020-05-29] MEDS ORDERED: MULTIVITAMIN TAB PO SCH (09:00)
[2020-05-29 09:07] LABS: BUN Creatinine Ratio 16.6 (10-20); Calcium 8.3 mg/dl (8.5-10.1); Creatinine Clr Calc Pharmacy 80.5 ml/min; Est GFR (African American) 89.9; Est GFR (Non-African American) 77.5; Potassium 4.2 mmol/L (3.5-5.1)
--- NOTE | 2020-05-29 14:50 | Progress Notes ---
DATE: 05/29/2020 SUBJECTIVE: A 65-year-old gentleman postop day 1 from a left knee revision with polyethylene exchange and patellar resurfacing. We also did a pretty extensive release trying to get some of the knee extension back. He is doing well. He says his pain is controlled. No chest pain or shortness of breath. Not feeling dizzy or lightheaded. He is hoping to go home. OBJECTIVE: VITAL SIGNS: Temperature 36.5. Vital signs stable. GENERAL: Shows a pleasant, middle-aged male. He is sitting up at his bedside. Looks pretty comfortable. LUNGS: Clear to auscultation. HEART: Has a regular rate and rhythm. ABDOMEN: Soft, nontender, nondistended. EXTREMITIES: Grossly neurovascularly intact except as follows: Examination of the left leg reveals the dressing to be clean, dry, and intact. He can do a straight leg raise. He can dorsiflex and plantarflex his foot appropriately. He is neurologically intact. LABORATORY DATA: Hemoglobin 13.9. Hematocrit 41.9. Electrolytes are stable. ASSESSMENT: A 65-year-old gentleman postoperative day 1 from a left knee revision with a polyethylene exchange and patellar resurfacing. He is doing well. PLAN: I stressed the importance of really working on full knee extension. He did well in therapy today. He is hoping to go home. We will continue DVT prophylaxis including thigh-high TEDs, SCDs, and aspirin twice a day. Continue current pain regimen. He will follow up with us in 2 weeks in clinic for staple removal.
--- NOTE | 2020-06-01 07:01 | Discharge Summary ---
Date of Service June 01, 2020 Discharge Data Consultations 05/28/20 16:42 Consult Case Management - Discharge Planning Routine Procedures Performed Operation Date: 05/28/20 12:30 Actual Procedures p Left Total Knee Revision Poly Exchange Patella Resurfacing, Synevectomy(Left) - Demetrius Avery MD Hospital Course (1) Status post revision of total replacement of left knee: This patient is a 65 year old male admitted on 05/28/20 and underwent left knee polyethylene exchange and patella resurfacing. He tolerated the procedure well and there were no complications. Transferred to the PACU post op and later to the orthopedic floor for further care. He was given ancef for antibiotic prophylaxis. He was also given TRINITY stockings, SCDs, and aspirin for DVT prophylaxis. Hemoglobin, hematocrit, and vital signs were monitored during his hospital stay and remained stable. Did not require any blood transfusions. There were no complications during his hospital stay. By post op day #1 the patient was tolerating a regular diet, pain was reasonably controlled with oral pain medicine, and he was participating in physical therapy. On post op day #1 the patient was discharged home and set up with home health care. He was given printed discharge instructions including prescriptions for extra strength tylenol, aspirin, and oxycodone. Continue physical therapy, weight bearing as tolerated. Continue TRINITY stockings. Follow up approximately 2 weeks post op or sooner if there are problems or concerns. Coding Level of Care Code None Diagnoses Status post revision of total replacement of left knee Z96.652
--- NOTE | 2020-06-13 09:49 | Coding Query ---
A supporting diagnosis is required for the test/procedure performed on this patient in order for us to be reimbursed by the patient's insurance. Please provide a supporting diagnosis for the following test/procedure listed below next to the test name along with your signature. *If there is no additional diagnosis for this patient that would support the following test/procedure please document that below next to the test/procedure. Test(s)/Procedure(s) that require a supporting diagnosis: Revise/replace knee joint DIAGNOSIS: Provider Signature: Date: Thank you Monika Narvaez Health Information Management Once completed, please kindly fax back to [phone] For questions please call [phone] [facility]
== END 2020-05-29 14:19 | disposition home health service (06) ==
LOC: 3E 10:24 → ASU 10:24